=== PATIENT | female | born 1980 | race Caucasian/White ===

== ENCOUNTER 2016-11-22 12:28 | Emergency (ER) | payer OTHER ==
--- NOTE | 2016-11-22 12:43 | ERPHSYRPT ---
- History of Present Illness Time Seen by Provider: 11/22/16 12:35 Historian: patient Exam Limitations: no limitations Physician History: The patient is a 36-year-old morbidly obese female brought in by ambulance from [facility] where she experienced a sudden onset of left upper quadrant abdominal pain with radiation to her left chest, left shoulder, and left arm. She was also nauseated. She denies shortness of breath. She was given Zofran 4 mg IV in the ambulance. She was having dry heaves. She has a history of left-sided abdominal pain without diagnosis. Her past medical history is significant for high cholesterol, diabetes, hypothyroidism, GERD, morbid obesity, abdominal pain , and migraine headaches. Her surgical history significant only for D&C. Timing/Duration: today Activities at Onset: none Quality: sharpness Abdominal Pain Onset Location: LLQ Pain Radiation: shoulder (left ), other (left arm) Severity of Pain-Max: moderate Severity of Pain-Current: mild Modifying Factors: Improves With: nothing Associated Symptoms: nausea, vomiting (dry heaves) Previous symptoms: same symptoms as today Allergies/Adverse Reactions: hydrocodone bitartrate [From Vicodin] Allergy (Severe, Verified 11/22/16 12:33) Hives Sulfa (Sulfonamide Antibiotics) [Sulfa(Sulfonamide Antibiotics)] Allergy (Severe , Verified 11/22/16 12:33) Hives codeine [Codeine] Allergy (Intermediate, Verified 11/22/16 12:33) Hives ibuprofen Allergy (Verified 11/22/16 12:33) [id number] Antimigraine Agents Allergy (Verified 11/22/16 12:33) ANY KIND OF MIGRAINE MED Allergy (Intermediate, Uncoded 11/22/16 12:33) Hives Home Medications: Ezetimibe 10 mg [Zetia 10 MG] 10 mg PO HS 02/11/14 [History] Levothyroxine Sodium [Synthroid] 300 mcg PO DAILY 02/11/14 [History] Naproxen 1 - 2 tab PO Q4H PRN 02/11/14 [History] Omeprazole [Prilosec] 40 mg PO BID 02/11/14 [History] Topiramate 100 mg [Topamax 100 MG] 50 mg PO BID 02/11/14 [History] Tramadol HCl 50 mg PO Q4H PRN 02/11/14 [History] Atorvastatin Calcium [Lipitor] 40 mg PO DAILY 11/22/16 [History] Lisinopril [Zestril] 2.5 mg PO DAILY 11/22/16 [History] Paroxetine HCl [Paxil] 10 mg PO DAILY 11/22/16 [History] Hx Tetanus, Diphtheria Vaccination/Date Given: Yes (TETANUS OUT OF DATE) Hx Influenza Vaccination/Date Given: Yes Hx Pneumococcal Vaccination/Date Given: Yes - Review of Systems Constitutional: No Fever, No Chills Eyes: No Symptoms Ears, Nose, & Throat: No Symptoms Respiratory: No Cough, No Dyspnea Cardiac: No Chest Pain, No Edema, No Syncope Abdominal/Gastrointestinal: Abdominal Pain, Nausea, Vomiting Genitourinary Symptoms: No Dysuria Musculoskeletal: No Back Pain, No Neck Pain Skin: No Rash Neurological: No Dizziness, No Focal Weakness, No Sensory Changes Psychological: No Symptoms Endocrine: No Symptoms Hematologic/Lymphatic: No Symptoms Immunological/Allergic: No Symptoms All Other Systems: Reviewed and Negative - Past Medical History Pertinent Past Medical History: Yes Neurological History: Migraines, Other ENT History: No Pertinent History Cardiac History: Hypertension Respiratory History: No Pertinent History Endocrine Medical History: Hypothyroidism Musculoskeletal History: Fibromyalgia GI Medical History: GERD, Pancreatitis, Polyps History: Other Psycho-Social History: Anxiety Female Reproductive Disorders: Endometriosis, Other Other Medical History: TOURETTE'S - Past Surgical History Past Surgical History: Yes Neuro Surgical History: No Pertinent History Cardiac: No Pertinent History Respiratory: No Pertinent History Gastrointestinal: No Pertinent History Genitourinary: No Pertinent History Musculoskeletal: No Pertinent History Female Surgical History: Other Other Surgical History: D&C 05/22/2013 - Social History Smoking Status: Former smoker Exposure to second hand smoke: No Drug Use: none Patient Lives Alone: No Significant Family History: heart disease, cancer, diabetes - Female History Hx Now: No - Nursing Vital Signs Nursing Vital Signs: Initial Vital Signs Temperature 97.6 F 11/22/16 12:29 Pulse Rate 75 11/22/16 12:29 Respiratory Rate 18 11/22/16 12:29 Blood Pressure 112/64 11/22/16 12:29 O2 Sat by Pulse Oximetry 98 11/22/16 12:29 Pain Scale Pain Intensity 4 - Physical Exam General Appearance: mild distress Eye Exam: PERRL/EOMI, eyes nml inspection Ears, Nose, Throat Exam: normal ENT inspection, pharynx normal, moist mucous membranes Neck Exam: normal inspection, non-tender, supple, full range of motion Respiratory Exam: normal breath sounds, lungs clear, No respiratory distress Cardiovascular Exam: regular rate/rhythm, normal heart sounds Gastrointestinal/Abdomen Exam: tenderness (LUQ) Pelvic Exam: not done Rectal Exam: not done Back Exam: normal inspection, normal range of motion, No CVA tenderness, No vertebral tenderness Extremity Exam: normal inspection, normal range of motion, pelvis stable Neurologic Exam: alert, oriented x 3, cooperative, normal mood/affect, nml cerebellar function, sensation nml, No motor deficits Skin Exam: normal color, warm, dry SpO2 Interpretation: normal - Course EKG Interpreted by Me: RATE, NORMAL AXIS, NORMAL INTERVALS, NORMAL QRS, NORMAL ST-T - Radiology Exams Abdomen X-ray Interpretation: Teleradiologist Report, Negative (no air space disease), Other (mild small bowel dilatation and scattered air-fluid levels per Dr Negron) Ordered Tests: Active Orders 24 hr Category Date Time Status EKG-ER Only STAT Care 11/22/16 12:49 Active IV Insertion STAT Care 11/22/16 12:49 Active OBSTR/ACUTE ABDOMEN SERIES Stat Exams 11/22/16 13:35 Taken CBC W DIFF Stat Lab 11/22/16 12:55 Completed CMP Stat Lab 11/22/16 12:55 Completed CULTURE,URINE Stat Lab 11/22/16 12:49 Received HCG QUALITATIVE,SERUM Stat Lab 11/22/16 12:55 Completed LIPASE Stat Lab 11/22/16 12:55 Completed Lactic Acid Stat Lab 11/22/16 12:49 Completed TROPONIN Q3H Lab 11/22/16 13:00 Completed TROPONIN Q3H Lab 11/22/16 16:00 Ordered TROPONIN Q3H Lab 11/22/16 19:00 Ordered TROPONIN Q3H Lab 11/22/16 22:00 Ordered TROPONIN Q3H Lab 11/23/16 01:00 Ordered UA W/ MICROSCOPIC Stat Lab 11/22/16 12:49 Completed Urine Triage Profile Stat Lab 11/22/16 12:45 Completed Medication Summary Discontinued Medications Generic Name Dose Route Start Last Admin Trade Name Freq PRN Reason Stop Dose Admin Sodium Chloride 1,000 mls @ 999 mls/hr 11/22/16 12:49 11/22/16 13:10 Sodium Chloride 0.9% 1000 Ml IV 11/22/16 13:49 999 mls/hr .Q1H1M STA Administration Sodium Chloride Confirm 11/22/16 13:07 Sodium Chloride 0.9% 1000 Ml Administered 11/22/16 13:08 Dose 1,000 mls @ ud .ROUTE .STK-MED ONE Morphine Sulfate 4 mg 11/22/16 12:49 11/22/16 13:11 Morphine Sulfate 4 Mg Inj IV 11/22/16 12:50 4 mg STAT ONE Administration Morphine Sulfate Confirm 11/22/16 13:07 Morphine Sulfate 4 Mg Inj Administered 11/22/16 13:08 Dose 4 mg .ROUTE .STK-MED ONE Promethazine HCl 12.5 mg 11/22/16 12:49 11/22/16 13:11 Phenergan 25 Mg Inj IV 11/22/16 12:50 12.5 mg STAT ONE Administration Promethazine HCl Confirm 11/22/16 13:07 Phenergan 25 Mg Inj Administered 11/22/16 13:08 Dose 25 mg .ROUTE .STK-MED ONE Lab/Rad Data: Laboratory Result Diagrams 11/22/16 12:55 11/22/16 12:55 Laboratory Results 11/22/16 11/22/16 11/22/16 Range/Units 13:00 12:55 12:55 WBC (4.0-10.5) K/mm3 RBC (4.1-5.4) M/mm3 Hgb (12.0-16.0) gm/dl Hct (35-47) % MCV (78-100) fl MCH (26-32) pg MCHC (32-36) g/dl RDW (11.5-14.0) % Plt Count (150-450) K/mm3 MPV (6-9.5) fl Gran % (36.0-66.0) % Lymphocytes % (24.0-44.0) % Monocytes % (0.0-12.0) % Eosinophils % (0.00-5.0) % Basophils % (0.0-0.4) % Basophils # (0-0.4) Sodium 139 (136-145) mEq/L Potassium 3.9 (3.5-5.1) mEq/L Chloride 107 (98-107) mEq/L Carbon Dioxide 20.6 L (21-32) mEq/L Anion Gap 15.4 H (5-15) MEQ/L BUN 17 (9-20) mg/dL Creatinine 1.05 (0.55-1.30) mg/dl Estimated GFR > 60 ML/MIN Glucose 92 (70-110) MG/DL Lactic Acid (0.4-2.0) Calcium 9.0 (8.5-10.1) mg/dL Total Bilirubin 0.50 (0.2-1.0) mg/dL AST 27 (15-37) U/L ALT 31 (12-78) U/L Alkaline Phosphatase 92 (46-116) U/L Troponin I < 0.017 (0.000-0.056) ng/ml Serum Total Protein 8.0 (6.4-8.2) gm/dL Albumin 3.4 (3.4-5.0) g/dL Lipase 116 (73-393) U/L Serum , Qual NEGATIVE (Negative) Ur Collection Type Urine Color (YELLOW) Urine Appearance (CLEAR) Urine pH (5-6) Ur Specific [place] (1.005-1.025) Urine Protein (Negative) Urine Ketones (NEGATIVE) Urine Blood (0-5) Merlin/ul Urine Nitrite (NEGATIVE) Urine Bilirubin (NEGATIVE) Urine Urobilinogen (0-1) mg/dL Ur Leukocyte Esterase (NEGATIVE) Urine Microscopic RBC (0-2) /HPF Urine Microscopic WBC (0-5) /HPF Ur Epithelial Cells (FEW) /HPF Urine Bacteria (NEGATIVE) /HPF Urine Mucus (NEGATIVE) /HPF Urine Glucose (NEGATIVE) mg/dL Urine Opiates Level (NEGATIVE) Ur Methadone (NEGATIVE) Urine Barbiturates (NEGATIVE) Ur Phencyclidine (PCP) (NEGATIVE) Urine Amphetamine (NEGATIVE) U Benzodiazepine Level (NEGATIVE) Urine Cocaine (NEGATIVE) Urine Marijuana (THC) (NEGATIVE) Specimen Received 11/22/16 11/22/16 11/22/16 Range/Units 12:55 12:49 12:49 WBC 7.9 (4.0-10.5) K/mm3 RBC 4.46 (4.1-5.4) M/mm3 Hgb 12.3 (12.0-16.0) gm/dl Hct 38.1 (35-47) % MCV 85.4 (78-100) fl MCH 27.6 (26-32) pg MCHC 32.3 (32-36) g/dl RDW 13.9 (11.5-14.0) % Plt Count 271 (150-450) K/mm3 MPV 10.2 H (6-9.5) fl Gran % 76.1 H (36.0-66.0) % Lymphocytes % 15.0 L (24.0-44.0) % Monocytes % 8.0 (0.0-12.0) % Eosinophils % 0.5 (0.00-5.0) % Basophils % 0.4 (0.0-0.4) % Basophils # 0.03 (0-0.4) Sodium (136-145) mEq/L Potassium (3.5-5.1) mEq/L Chloride (98-107) mEq/L Carbon Dioxide (21-32) mEq/L Anion Gap (5-15) MEQ/L BUN (9-20) mg/dL Creatinine (0.55-1.30) mg/dl Estimated GFR ML/MIN Glucose (70-110) MG/DL Lactic Acid 1.1 (0.4-2.0) Calcium (8.5-10.1) mg/dL Total Bilirubin (0.2-1.0) mg/dL AST (15-37) U/L ALT (12-78) U/L Alkaline Phosphatase (46-116) U/L Troponin I (0.000-0.056) ng/ml Serum Total Protein (6.4-8.2) gm/dL Albumin (3.4-5.0) g/dL Lipase (73-393) U/L Serum , Qual (Negative) Ur Collection Type VOID Urine Color YELLOW (YELLOW) Urine Appearance CLOUDY (CLEAR) Urine pH 5.0 (5-6) Ur Specific [place] 1.025 (1.005-1.025) Urine Protein 100 (Negative) Urine Ketones SMALL (NEGATIVE) Urine Blood 250 (0-5) Merlin/ul Urine Nitrite NEGATIVE (NEGATIVE) Urine Bilirubin NEGATIVE (NEGATIVE) Urine Urobilinogen NORMAL (0-1) mg/dL Ur Leukocyte Esterase 1+ (NEGATIVE) Urine Microscopic RBC 5-10 (0-2) /HPF Urine Microscopic WBC 5-10 (0-5) /HPF Ur Epithelial Cells MANY (FEW) /HPF Urine Bacteria MANY (NEGATIVE) /HPF Urine Mucus MODERATE (NEGATIVE) /HPF Urine Glucose NEGATIVE (NEGATIVE) mg/dL Urine Opiates Level (NEGATIVE) Ur Methadone (NEGATIVE) Urine Barbiturates (NEGATIVE) Ur Phencyclidine (PCP) (NEGATIVE) Urine Amphetamine (NEGATIVE) U Benzodiazepine Level (NEGATIVE) Urine Cocaine (NEGATIVE) Urine Marijuana (THC) (NEGATIVE) Specimen Received 11/22/16 1245 11/22/16 Range/Units 12:45 WBC (4.0-10.5) K/mm3 RBC (4.1-5.4) M/mm3 Hgb (12.0-16.0) gm/dl Hct (35-47) % MCV (78-100) fl MCH (26-32) pg MCHC (32-36) g/dl RDW (11.5-14.0) % Plt Count (150-450) K/mm3 MPV (6-9.5) fl Gran % (36.0-66.0) % Lymphocytes % (24.0-44.0) % Monocytes % (0.0-12.0) % Eosinophils % (0.00-5.0) % Basophils % (0.0-0.4) % Basophils # (0-0.4) Sodium (136-145) mEq/L Potassium (3.5-5.1) mEq/L Chloride (98-107) mEq/L Carbon Dioxide (21-32) mEq/L Anion Gap (5-15) MEQ/L BUN (9-20) mg/dL Creatinine (0.55-1.30) mg/dl Estimated GFR ML/MIN Glucose (70-110) MG/DL Lactic Acid (0.4-2.0) Calcium (8.5-10.1) mg/dL Total Bilirubin (0.2-1.0) mg/dL AST (15-37) U/L ALT (12-78) U/L Alkaline Phosphatase (46-116) U/L Troponin I (0.000-0.056) ng/ml Serum Total Protein (6.4-8.2) gm/dL Albumin (3.4-5.0) g/dL Lipase (73-393) U/L Serum , Qual (Negative) Ur Collection Type Urine Color (YELLOW) Urine Appearance (CLEAR) Urine pH (5-6) Ur Specific [place] (1.005-1.025) Urine Protein (Negative) Urine Ketones (NEGATIVE) Urine Blood (0-5) Merlin/ul Urine Nitrite (NEGATIVE) Urine Bilirubin (NEGATIVE) Urine Urobilinogen (0-1) mg/dL Ur Leukocyte Esterase (NEGATIVE) Urine Microscopic RBC (0-2) /HPF Urine Microscopic WBC (0-5) /HPF Ur Epithelial Cells (FEW) /HPF Urine Bacteria (NEGATIVE) /HPF Urine Mucus (NEGATIVE) /HPF Urine Glucose (NEGATIVE) mg/dL Urine Opiates Level NEG. (NEGATIVE) Ur Methadone NEG. (NEGATIVE) Urine Barbiturates NEG. (NEGATIVE) Ur Phencyclidine (PCP) NEG. (NEGATIVE) Urine Amphetamine NEG. (NEGATIVE) U Benzodiazepine Level NEG. (NEGATIVE) Urine Cocaine NEG. (NEGATIVE) Urine Marijuana (THC) NEG. (NEGATIVE) Specimen Received - Progress Progress: improved Progress Note: 11/22/16 13:03 Review of past imaging studies: On 06/22/2013 the patient had a nuclear med hepatobiliary scan which was normal. A gallbladder ultrasound performed on 12/26 showed no cholelithiasis, no gallbladder wall enlargement, and no gallbladder wall thickening. on 08/12/2016 a renal ultrasound was negative. Counseled pt/family regarding: lab results, diagnosis, need for follow-up, rad results - Departure Time of Disposition: 14:57 Departure Disposition: Home Clinical Impression: Enteritis Condition: Stable Critical Care Time: No Referrals: FELIX VILLAGRAN [Primary Care Provider] - Additional Instructions: You have enteritis with nausea and abdominal pain. You were given fluids, morphine 4 mg, and Zofran 4 mg in the ER by IV. Take Tylenol as needed. Follow -up tomorrow if needed.
[2016-11-22] MEDS ORDERED: MORPHINE SULFATE 4 MG INJ IV ONE (12:49)
[2016-11-22] MEDS ORDERED: Phenergan 25 MG INJ IV ONE (12:49)
[2016-11-22] MEDS ORDERED: Sodium Chloride 0.9% 1000 ML 1,000 ML IV STA (12:49)
[2016-11-22] MEDS ORDERED: MORPHINE SULFATE 4 MG INJ ONE (13:07)
[2016-11-22] MEDS ORDERED: Sodium Chloride 0.9% 1000 ML 1,000 ML ONE (13:07)
[2016-11-22] MEDS ORDERED: Phenergan 25 MG INJ ONE (13:07)
[2016-11-22 13:08] LABS: BASOPHIL % 0.4 % (0.0-0.4); Eosinophil % 0.5 % (0.00-5.0); Granulocytes % 76.1 % (36.0-66.0); Mean Cell Volume 85.4 fl (78-100); Mean Corpuscular Hemoglobin 27.6 pg (26-32); Mean Platelet Volume 10.2 fl (6-9.5); Platelet Count 271 K/mm3 (150-450); Red Blood Count 4.46 M/mm3 (4.1-5.4); Red Cell Distribution Width 13.9 % (11.5-14.0); White Blood Count 7.9 K/mm3 (4.0-10.5)
[2016-11-22 13:12] LABS: Bacteria MANY /HPF (NEGATIVE); Bilirubin NEGATIVE (NEGATIVE); Blood 250 Ery/ul (0-5); COMPLETE URINE MICROSCOPIC? YES; Collection Type VOID; Epithelial Cells MANY /HPF (FEW); Glucose NEGATIVE (NEGATIVE); Leukocyte Esterase 1+ (NEGATIVE); Mucus MODERATE /HPF (NEGATIVE)
[2016-11-22 13:13] LABS: ADD URINE CULTURE? YES (NO)
[2016-11-22 13:26] LABS: ALBUMIN 3.4 g/dL (3.4-5.0); ALKALINE PHOSPHATASE 92 U/L (46-116); ANION GAP 15.4 MEQ/L (5-15); BLOOD UREA NITROGEN 17 mg/dL (9-20); CHLORIDE 107 mEq/L (98-107); Carbon Dioxide 20.6 mEq/L (21-32); Glucose 92 MG/DL (70-110); LIPASE 116 U/L (73-393); Potassium 3.9 mEq/L (3.5-5.1); SGOT/AST 27 U/L (15-37); SGPT/ALT 31 U/L (12-78); SODIUM 139 mEq/L (136-145)
[2016-11-22 14:48] VITALS: BP 93/56; PULSE 62; O2SAT 94
--- NOTE | 2016-11-22 21:22 | XRAY ---
Indication: Left upper quadrant abdominal pain and nausea for 6 days. Comparison: Chest exam February 15, 2014. 2 views of the abdomen demonstrates nonspecific nonobstructed bowel gas pattern. Solid organs unremarkable. Osseous structures intact with mild levoscoliosis. Single frontal chest again demonstrates normal heart, lungs, and bony thorax with incidental calcified granulomas. Impression: Nonacute nonobstructed abdomen. Stable nonacute 1 view chest with chronic features. Comment: Preliminary interpretation was made by [facility]. No discrepancy.
== END 2016-11-22 15:23 | disposition home or self-care (01) ==
LOC: ED 12:28
DX: K52.9 Noninfective gastroenteritis and colitis, unspecified (principal); N39.0 Urinary tract infection, site not specified; R10.12 Left upper quadrant pain; R10.32 Left lower quadrant pain; E78.00 Pure hypercholesterolemia, unspecified; E11.9 Type 2 diabetes mellitus without complications; E03.9 Hypothyroidism, unspecified; K21.9 Gastro-esophageal reflux disease without esophagitis; E66.01 Morbid (severe) obesity due to excess calories; R11.2 Nausea with vomiting, unspecified; Z79.899 Other long term (current) drug therapy
CPT/HCPCS: 36000; 36415; 74022; 80053; 80307; 81000; 83605; 83690; 84484; 84703; 85025; 87086; 93005; 96360; 96374; 96375; 99284; J2270; J2550

== ENCOUNTER 2017-04-23 22:59 | Emergency (ER) | payer OTHER ==
--- NOTE | 2017-04-23 23:20 | ERPHSYRPT ---
- History of Present Illness Time Seen by Provider: 04/23/17 23:15 Historian: patient Exam Limitations: clinical condition Patient Subjective Stated Complaint: Abdominal Pain Triage Nursing Assessment: Pt states intermittent LUQ abdominal pain with radiation into the RUQ. Pt states she has been evaluated for gall bladder issues but no further interventions have been performed. Pt states there is nothing that makes pain better or worse. Pt denies other complaints at this time. Skin PWD, no distress noted, A&O x4. Physician History: PATIENT WITH A HISTORY OF HYPERTENSION, HYPOTHYROIDISM, AND PANCREATITIS COMPLAINS OF ACUTE ONSET OF UPPER ABDOMINAL PAIN SINCE 3AM TODAY PERSISTENT, DENIES NAUSEA, EMESIS, OR FEVER. Timing/Duration: today Activities at Onset: none Quality: sharpness, stabbing Abdominal Pain Onset Location: LUQ, epigastric Severity of Pain-Max: moderate Severity of Pain-Current: moderate Modifying Factors: Improves With: nothing Associated Symptoms: denies symptoms Previous symptoms: same symptoms as today (HISTORY OF PANCREATITIS) Allergies/Adverse Reactions: hydrocodone bitartrate [From Vicodin] Allergy (Severe, Verified 11/22/16 12:33) Hives Sulfa (Sulfonamide Antibiotics) [Sulfa(Sulfonamide Antibiotics)] Allergy (Severe , Verified 11/22/16 12:33) Hives codeine [Codeine] Allergy (Intermediate, Verified 11/22/16 12:33) Hives ibuprofen Allergy (Verified 11/22/16 12:33) [id number] Antimigraine Agents Allergy (Verified 11/22/16 12:33) ANY KIND OF MIGRAINE MED Allergy (Intermediate, Uncoded 11/22/16 12:33) Hives Home Medications: Ezetimibe 10 mg [Zetia 10 MG] 10 mg PO HS 02/11/14 [History] Levothyroxine Sodium [Synthroid] 300 mcg PO DAILY 02/11/14 [History] Omeprazole [Prilosec] 40 mg PO BID 02/11/14 [History] Topiramate 100 mg [Topamax 100 MG] 50 mg PO BID 02/11/14 [History] Atorvastatin Calcium [Lipitor] 40 mg PO DAILY 11/22/16 [History] Lisinopril [Zestril] 2.5 mg PO DAILY 11/22/16 [History] Paroxetine HCl [Paxil] 10 mg PO DAILY 11/22/16 [History] Hx Tetanus, Diphtheria Vaccination/Date Given: No Hx Influenza Vaccination/Date Given: Yes Hx Pneumococcal Vaccination/Date Given: No Immunizations Up to Date: Yes - Review of Systems Constitutional: No Fever, No Chills Eyes: No Symptoms Ears, Nose, & Throat: No Symptoms Respiratory: No Symptoms, No Cough, No Dyspnea Cardiac: No Symptoms, No Chest Pain, No Edema, No Syncope Abdominal/Gastrointestinal: Abdominal Pain, No Nausea, No Vomiting, No Diarrhea Genitourinary Symptoms: No Symptoms, No Dysuria Musculoskeletal: No Symptoms, No Back Pain, No Neck Pain Skin: No Rash Neurological: No Dizziness, No Focal Weakness, No Sensory Changes Psychological: No Symptoms Endocrine: No Symptoms All Other Systems: Reviewed and Negative - Past Medical History Pertinent Past Medical History: Yes Neurological History: Migraines, Other ENT History: No Pertinent History Cardiac History: Hypertension Respiratory History: No Pertinent History Endocrine Medical History: Hypothyroidism Musculoskeletal History: Fibromyalgia GI Medical History: GERD, Pancreatitis, Polyps History: Other Psycho-Social History: Anxiety Female Reproductive Disorders: Endometriosis, Other Other Medical History: TOURETTE'S - Past Surgical History Past Surgical History: Yes Neuro Surgical History: No Pertinent History Cardiac: No Pertinent History Respiratory: No Pertinent History Gastrointestinal: No Pertinent History Genitourinary: No Pertinent History Musculoskeletal: No Pertinent History Female Surgical History: Other Other Surgical History: D&C 05/22/2013 - Social History Smoking Status: Former smoker Exposure to second hand smoke: No Drug Use: none Patient Lives Alone: No Significant Family History: heart disease, cancer, diabetes - Female History Hx Last Menstrual Period: 04/08/2017 Hx Now: No - Nursing Vital Signs Nursing Vital Signs: Initial Vital Signs Temperature 97.4 F 04/23/17 23:10 Pulse Rate 81 04/23/17 23:10 Respiratory Rate 18 04/23/17 23:10 Blood Pressure 132/79 04/23/17 23:10 O2 Sat by Pulse Oximetry 100 04/23/17 23:10 Pain Scale Pain Intensity 3 - Physical Exam General Appearance: no apparent distress, alert Eye Exam: PERRL/EOMI, eyes nml inspection Ears, Nose, Throat Exam: normal ENT inspection, pharynx normal, moist mucous membranes Neck Exam: normal inspection, non-tender, supple, full range of motion Respiratory Exam: normal breath sounds, lungs clear, No respiratory distress Cardiovascular Exam: regular rate/rhythm, normal heart sounds Gastrointestinal/Abdomen Exam: soft, normal bowel sounds, tenderness ( TENDERNESS EPIGASTRIC, RUQ AND LUQ), No mass Back Exam: normal inspection, normal range of motion, No CVA tenderness, No vertebral tenderness Extremity Exam: normal inspection, normal range of motion, pelvis stable Neurologic Exam: alert, oriented x 3, cooperative, normal mood/affect, nml cerebellar function, sensation nml, No motor deficits Skin Exam: normal color, warm, dry SpO2: 100 Oxygen Delivery: Room Air - CT Exams Abdomen/Pelvis CT Interpretation: Tele-radiologist Report (PANCREAS AND GALLBLADDER AND BILE DUCTS UNREMARKABLE, NO CALCIFIED STONES, NO DUCTAL DILATION, THERE I A NONOBSTRUCTING STONE MIDPOLE MEASURING 0.3 AND 0.4C), Other (MARKED STOOL THROUGH COLON) Ordered Tests: Active Orders 24 hr Category Date Time Status Clean Catch Urine Specimen STAT Care 04/23/17 23:36 Active IV Insertion STAT Care 04/23/17 23:36 Active ABDOMEN AND PELVIS W/0 CONTRAS [CT] Stat Exams 04/23/17 23:36 Taken AMYLASE Stat Lab 04/23/17 23:15 Completed CBC W DIFF Stat Lab 04/23/17 23:15 Completed CMP Stat Lab 04/23/17 23:15 Completed CULTURE,URINE Stat Lab 04/23/17 23:15 Received LIPASE Stat Lab 04/23/17 23:15 Completed UA W/ MICROSCOPIC Stat Lab 04/23/17 23:15 Completed Medication Summary Generic Name Dose Route Start Last Admin Trade Name Freq PRN Reason Stop Dose Admin Sodium Chloride 1,000 mls @ 500 mls/hr 04/23/17 23:36 04/23/17 23:44 Sodium Chloride 0.9% 1000 Ml IV 04/24/17 01:35 500 mls/hr .Q2H STA Administration Discontinued Medications Generic Name Dose Route Start Last Admin Trade Name Freq PRN Reason Stop Dose Admin Hydromorphone HCl 1 mg 04/23/17 23:36 04/23/17 23:51 Hydromorphone 1 Mg/Ml Ampule IV 04/23/17 23:37 1 mg STAT ONE Administration Hydromorphone HCl Confirm 04/23/17 23:42 Hydromorphone 1 Mg/Ml Ampule Administered 04/23/17 23:43 Dose 1 mg .ROUTE .STK-MED ONE Sodium Chloride Confirm 04/23/17 23:42 Sodium Chloride 0.9% 1000 Ml Administered 04/23/17 23:43 Dose 1,000 mls @ ud .ROUTE .STK-MED ONE Ceftriaxone Sodium/Dextrose 1 g in 50 mls @ 100 mls/hr 04/24/17 00:00 00:52 Rocephin 1 Gm-D5w 50 Ml Bag IV 04/24/17 00:29 100 mls/hr STAT STA Administration Ceftriaxone Sodium/Dextrose Confirm 04/24/17 00:29 Rocephin 1 Gm-D5w 50 Ml Bag Administered 04/24/17 00:30 Dose 1 g in 50 mls @ ud IV .STK-MED ONE Ondansetron HCl 4 mg 04/23/17 23:36 04/23/17 23:47 Zofran 4 Mg/2 Ml Vial IV 04/23/17 23:37 4 mg STAT ONE Administration Ondansetron HCl Confirm 04/23/17 23:42 Zofran 4 Mg/2 Ml Vial Administered 04/23/17 23:43 Dose 4 mg .ROUTE .STK-MED ONE Pantoprazole Sodium 40 mg 04/23/17 23:36 04/23/17 23:48 Protonix 40 Mg Iv IV 04/23/17 23:37 40 mg STAT ONE Administration Pantoprazole Sodium Confirm 04/23/17 23:42 Protonix 40 Mg Iv Administered 04/23/17 23:43 Dose 40 mg IV .STK-MED ONE Lab/Rad Data: Laboratory Result Diagrams 04/23/17 23:15 04/23/17 23:15 Laboratory Results 04/23/17 04/23/17 04/23/17 Range/Units 23:15 23:15 23:15 WBC 4.6 (4.0-10.5) K/mm3 RBC 4.30 (4.1-5.4) M/mm3 Hgb 11.9 L (12.0-16.0) gm/dl Hct 38.1 (35-47) % MCV 88.6 (78-100) fl MCH 27.6 (26-32) pg MCHC 31.2 L (32-36) g/dl RDW 15.1 H (11.5-14.0) % Plt Count 213 (150-450) K/mm3 MPV 10.5 H (6-9.5) fl Gran % 68.0 H (36.0-66.0) % Lymphocytes % 20.0 L (24.0-44.0) % Monocytes % 9.9 (0.0-12.0) % Eosinophils % 1.5 (0.00-5.0) % Basophils % 0.6 (0.0-0.4) % Basophils # 0.03 (0-0.4) Sodium 142 (136-145) mEq/L Potassium 3.3 L (3.5-5.1) mEq/L Chloride 106 (98-107) mEq/L Carbon Dioxide 30.2 (21-32) mEq/L Anion Gap 9.1 (5-15) MEQ/L BUN 20 (9-20) mg/dL Creatinine 0.97 (0.55-1.30) mg/dl Estimated GFR > 60 ML/MIN Glucose 72 (70-110) MG/DL Calcium 8.8 (8.5-10.1) mg/dL Total Bilirubin 0.40 (0.2-1.0) mg/dL AST 18 (15-37) U/L ALT 17 (12-78) U/L Alkaline Phosphatase 89 (46-116) U/L Serum Total Protein 7.8 (6.4-8.2) gm/dL Albumin 3.9 (3.4-5.0) g/dL Amylase 93 (25-115) U/L Lipase 178 (73-393) U/L Ur Collection Type CCMS Urine Color YELLOW (YELLOW) Urine Appearance SLIGHTLY CLOUDY (CLEAR) Urine pH 6.0 (5-6) Ur Specific [place] 1.025 (1.005-1.025) Urine Protein TRACE (Negative) Urine Ketones NEGATIVE (NEGATIVE) Urine Blood NEGATIVE (0-5) Merlin/ul Urine Nitrite NEGATIVE (NEGATIVE) Urine Bilirubin NEGATIVE (NEGATIVE) Urine Urobilinogen 1 (0-1) mg/dL Ur Leukocyte Esterase 1+ (NEGATIVE) Urine Microscopic RBC 0-2 (0-2) /HPF Urine Microscopic WBC 10-15 (0-5) /HPF Ur Epithelial Cells MODERATE (FEW) /HPF Urine Bacteria FEW (NEGATIVE) /HPF Urine Mucus SLIGHT (NEGATIVE) /HPF Urine Culture Reflexed YES (NO) Urine Glucose NEGATIVE (NEGATIVE) mg/dL Specimen Received 04-23-17 2345 - Progress Progress: improved Progress Note: 04/23/17 23:43 ADMINISTERED IV NORMAL SALINE 500ML/HR, ZOFRAN 4MG, PROTONIX 40MG AND DILAUDID 1MG IV 04/24/17 00:19 Counseled pt/family regarding: lab results, diagnosis, need for follow-up, rad results - Departure Time of Disposition: :20 Departure Disposition: Home Clinical Impression: ABDOMINAL PAIN., NONOBSTRUCTING RIGHT KIDNEY STONE, Urinary tract infection Condition: Stable Critical Care Time: No Referrals: FELIX VILLAGRAN [Primary Care Provider] - Additional Instructions: FOLLOWUP WITH YOUR PRIMARY CARE PROVIDER FOR REFERRAL FOR ENDOSCOPY. TAKE BOTTLE OF MAGNESIUM CITRATE AT HOME AFTER DISCHARGE FOR CONSTIPATION. MAY TAKE 2 TABLE SPOONS OF MYALANTA OR MAALOX AFTER MEALS AND AT BEDTIME. TYLENOL EVERY 4 HOURS FOR PAIN. Prescriptions: Ciprofloxacin [Cipro 500 MG] 500 mg PO BID #20 tablet Ciprofloxacin [Cipro 500 MG] 500 mg PO BID #20 tablet
[2017-04-23] MEDS ORDERED: Zofran 4 MG/2 ML VIAL IV ONE (23:36)
[2017-04-23] MEDS ORDERED: Hydromorphone 1 mg/ml Ampule IV ONE (23:36)
[2017-04-23] MEDS ORDERED: Sodium Chloride 0.9% 1000 ML 1,000 ML IV STA (23:36)
[2017-04-23] MEDS ORDERED: PROTONIX 40 MG IV IV ONE ×2 (23:36→23:42)
[2017-04-23] MEDS ORDERED: Sodium Chloride 0.9% 1000 ML 1,000 ML ONE (23:42)
[2017-04-23] MEDS ORDERED: Zofran 4 MG/2 ML VIAL ONE (23:42)
[2017-04-23] MEDS ORDERED: Hydromorphone 1 mg/ml Ampule ONE (23:42)
[2017-04-23 23:44] LABS: BASOPHIL % 0.6 % (0.0-0.4); Basophil (Absolute #) 0.03 (0-0.4); Eosinophil % 1.5 % (0.00-5.0); Eosinophil (Absolute #) 0.07 (0-0.5); Granulocyte Absolute (ANC) 3.15 (1.4-6.9); Hematocrit 38.1 % (35-47); Hemoglobin 11.9 gm/dl (12.0-16.0); Lymphocyte (Absolute #) 0.93 (1.0-4.6); Mean Cell Volume 88.6 fl (78-100); Mean Corpuscular Hgb Concent. 31.2 g/dl (32-36); Mean Platelet Volume 10.5 fl (6-9.5); Monocyte (Absolute #) 0.46 (0.0-1.3); Monocytes % 9.9 % (0.0-12.0); Platelet Count 213 K/mm3 (150-450); Red Cell Distribution Width 15.1 % (11.5-14.0); White Blood Count 4.6 K/mm3 (4.0-10.5)
[2017-04-23 23:45] LABS: Mean Corpuscular Hemoglobin 27.6 pg (26-32)
[2017-04-23 23:53] LABS: ALBUMIN 3.9 g/dL (3.4-5.0); ALKALINE PHOSPHATASE 89 U/L (46-116); AMYLASE 93 U/L (25-115); ANION GAP 9.1 MEQ/L (5-15); Appearance SLIGHTLY CLOUDY (CLEAR); BLOOD UREA NITROGEN 20 mg/dL (9-20); Bacteria FEW /HPF (NEGATIVE); Bilirubin NEGATIVE (NEGATIVE); Blood NEGATIVE Ery/ul (0-5); CHLORIDE 106 mEq/L (98-107); Calcium 8.8 mg/dL (8.5-10.1); Carbon Dioxide 30.2 mEq/L (21-32); Creatinine 1 0.97 mg/dl (0.55-1.30); EST GLOMERULAR FILTRATION RATE > 60 ML/MIN; Epithelial Cells MODERATE /HPF (FEW); Glucose 72 MG/DL (70-110); Glucose NEGATIVE (NEGATIVE); Ketones NEGATIVE (NEGATIVE); LIPASE 178 U/L (73-393); Leukocyte Esterase 1+ (NEGATIVE); Mucus SLIGHT /HPF (NEGATIVE); Nitrite NEGATIVE (NEGATIVE); Potassium 3.3 mEq/L (3.5-5.1); Protein,Urine Dip TRACE (Negative); SGOT/AST 18 U/L (15-37); SGPT/ALT 17 U/L (12-78); SODIUM 142 mEq/L (136-145); Specific Gravity 1.025 (1.005-1.025); Total Protein 7.8 gm/dL (6.4-8.2); Urobilinogen 1 mg/dL (0-1)
[2017-04-24] MEDS ORDERED: ROCEPHIN 1 Gm-D5w 50 ml Bag** 1 G/50 ML IVPB IV STA
[2017-04-24] MEDS ORDERED: ROCEPHIN 1 Gm-D5w 50 ml Bag** 1 G/50 ML IVPB IV ONE (00:29)
[2017-04-24 01:05] VITALS: O2SAT 100
[2017-04-24] MEDS ORDERED: CITROMA 296 ML PO ONE (01:21)
[2017-04-24] MEDS ORDERED: CITROMA 296 ML ONE (01:26)
[2017-04-24] MEDS ORDERED: ULTRAM 50 MG PO ONE (01:29)
[2017-04-24] MEDS ORDERED: ULTRAM 50 MG ONE (01:32)
[2017-04-24 01:34] VITALS: BP 121/74; PULSE 74
--- NOTE | 2017-04-24 06:34 | XRAY ---
Indication: Upper abdominal pain and nausea. Multiple contiguous axial images obtained through the abdomen and pelvis without contrast as ordered. Comparison: June 07, 2013. Lung bases demonstrates minimal bibasilar dependent atelectasis and right base calcified granulomas. Heart is not enlarged. Noncontrasted stomach and bowel loops appear nonobstructed. Normal appendix. Mild diffuse scattered colonic fecal debris throughout. No free fluid/air. New nonobstructing right renal micro-calculus. Stable splenic calcified granulomas. Remaining liver, gallbladder, pancreas, spleen, adrenal glands, kidneys, ureters, bladder, uterus, and aorta appear unremarkable for noncontrast exam. Osseous structures intact. Impression: 1. New nonobstructing right renal micro-calculus. 2. Fecal stasis without obstruction. 3. No acute intra-abdominal/pelvic abnormalities on this noncontrast exam. Comment: Preliminary interpretation was made by C. No critical discrepancy. CTDI 28.13
== END 2017-04-24 01:47 | disposition home or self-care (01) ==
LOC: ED 22:59
DX: R10.13 Epigastric pain (principal); R10.11 Right upper quadrant pain; R10.12 Left upper quadrant pain; R10.9 Unspecified abdominal pain; N39.0 Urinary tract infection, site not specified; I10 Essential (primary) hypertension; E03.9 Hypothyroidism, unspecified; K21.9 Gastro-esophageal reflux disease without esophagitis; K86.1 Other chronic pancreatitis; M79.7 Fibromyalgia; F41.9 Anxiety disorder, unspecified; N80.9 Endometriosis, unspecified; Z87.891 Personal history of nicotine dependence; Z79.899 Other long term (current) drug therapy
CPT/HCPCS: 36000; 36415; 74176; 80053; 81000; 82150; 83690; 85025; 87086; 96360; 96361; 96374; 96375; 99284; J0696; J1170; J2405; A9270-GY

== ENCOUNTER 2017-09-18 09:23 | Emergency (ER) | payer OTHER ==
[2017-09-18 09:42] VITALS: O2SAT 98
[2017-09-18] MEDS ORDERED: Zofran 4 MG/2 ML VIAL IV ONE (09:45)
[2017-09-18] MEDS ORDERED: TORAdol 30 mg Injection IV ONE (09:45)
[2017-09-18] MEDS ORDERED: Zofran 4 MG/2 ML VIAL ONE (09:52)
--- NOTE | 2017-09-18 09:52 | ERPHSYRPT ---
- History of Present Illness Time Seen by Provider: 09/18/17 09:40 Historian: patient Exam Limitations: no limitations Patient Subjective Stated Complaint: Pt states "I have cysts on my ovaries and on I felt a pop in my lower left side and the pain is bad." Triage Nursing Assessment: Pt alert and oriented X 3, skin pwd Pt ambulates with an upright steady gait, able to speak in clear full sentences. PT is guarding her lower left abdomen. Physician History: 37 y/o female with history of ruptured ovarian cysts comes to the ER with complaints of LLQ abdominal pain since . Pt says the pain is similar to her ovarian cyst pain. Pt describes the pain as sharp, constant, 8/10 and pt has not taken any pain meds. Pt also admits to nausea, but denies any vomiting, fever, chills, diarrhea or urinary symptoms. Pt also admits to being constipated. Timing/Duration: day(s) Activities at Onset: none Quality: sharpness Abdominal Pain Onset Location: LLQ Pain Radiation: no radiation Severity of Pain-Max: severe Severity of Pain-Current: severe Modifying Factors: Improves With: nothing Associated Symptoms: nausea Previous symptoms: same symptoms as today Allergies/Adverse Reactions: blueberry Allergy (Severe, Verified 09/18/17 09:43) Swelling hydrocodone bitartrate [From Vicodin] Allergy (Severe, Verified 11/22/16 12:33) Hives Sulfa (Sulfonamide Antibiotics) [Sulfa(Sulfonamide Antibiotics)] Allergy (Severe , Verified 11/22/16 12:33) Hives codeine [Codeine] Allergy (Intermediate, Verified 11/22/16 12:33) Hives ibuprofen Allergy (Verified 11/22/16 12:33) [id number] Antimigraine Agents Allergy (Verified 11/22/16 12:33) ANY KIND OF MIGRAINE MED Allergy (Intermediate, Uncoded 11/22/16 12:33) Hives Home Medications: Ezetimibe 10 mg [Zetia 10 MG] 10 mg PO HS 02/11/14 [History] Levothyroxine Sodium [Synthroid] 300 mcg PO DAILY 02/11/14 [History] Omeprazole [Prilosec] 40 mg PO BID 02/11/14 [History] Topiramate 100 mg [Topamax 100 MG] 50 mg PO BID 02/11/14 [History] Atorvastatin Calcium [Lipitor] 40 mg PO DAILY 11/22/16 [History] Lisinopril [Zestril] 2.5 mg PO DAILY 11/22/16 [History] Paroxetine HCl [Paxil] 10 mg PO DAILY 11/22/16 [History] Tramadol HCl 50 mg PO DAILY 09/18/17 [History] Hx Tetanus, Diphtheria Vaccination/Date Given: Yes Hx Influenza Vaccination/Date Given: Yes Hx Pneumococcal Vaccination/Date Given: No Immunizations Up to Date: Yes - Review of Systems Constitutional: No Fever, No Chills Eyes: No Symptoms Ears, Nose, & Throat: No Symptoms Respiratory: No Cough, No Dyspnea Cardiac: No Chest Pain, No Edema, No Syncope Abdominal/Gastrointestinal: Abdominal Pain, Nausea, No Vomiting, No Diarrhea Genitourinary Symptoms: No Dysuria Musculoskeletal: No Back Pain, No Neck Pain Skin: No Rash Neurological: No Dizziness, No Focal Weakness, No Sensory Changes Psychological: No Symptoms Endocrine: No Symptoms All Other Systems: Reviewed and Negative - Past Medical History Pertinent Past Medical History: Yes Neurological History: Migraines, Other ENT History: No Pertinent History Cardiac History: Hypertension Respiratory History: No Pertinent History Endocrine Medical History: Hypothyroidism Musculoskeletal History: Fibromyalgia GI Medical History: GERD, Pancreatitis, Polyps History: Other Psycho-Social History: Anxiety Female Reproductive Disorders: Endometriosis, Other Other Medical History: TOURETTE'S - Past Surgical History Past Surgical History: Yes Neuro Surgical History: No Pertinent History Cardiac: No Pertinent History Respiratory: No Pertinent History Gastrointestinal: No Pertinent History Genitourinary: No Pertinent History Musculoskeletal: No Pertinent History Female Surgical History: Other Other Surgical History: D&C 05/22/2013 - Social History Smoking Status: Former smoker Exposure to second hand smoke: No Drug Use: none Patient Lives Alone: No Significant Family History: heart disease, cancer, diabetes - Female History Hx Last Menstrual Period: 09/18/2017 Hx Now: No - Nursing Vital Signs Nursing Vital Signs: Initial Vital Signs Temperature 98.5 F 09/18/17 09:28 Pulse Rate 62 09/18/17 09:28 Respiratory Rate 16 09/18/17 09:28 Blood Pressure 117/73 09/18/17 09:28 O2 Sat by Pulse Oximetry 98 09/18/17 09:28 Pain Scale Pain Intensity 6 - Physical Exam General Appearance: mild distress, alert Eye Exam: PERRL/EOMI, eyes nml inspection Ears, Nose, Throat Exam: normal ENT inspection, pharynx normal, moist mucous membranes Neck Exam: normal inspection, non-tender, supple, full range of motion Respiratory Exam: normal breath sounds, lungs clear, No respiratory distress Cardiovascular Exam: regular rate/rhythm, normal heart sounds Gastrointestinal/Abdomen Exam: soft, normal bowel sounds, tenderness, No distention, No mass, No guarding, No rebound Back Exam: normal inspection, normal range of motion, No CVA tenderness, No vertebral tenderness Extremity Exam: normal inspection, normal range of motion, pelvis stable Neurologic Exam: alert, oriented x 3, cooperative, normal mood/affect, nml cerebellar function, sensation nml, No motor deficits Skin Exam: normal color, warm, dry SpO2: 98 Oxygen Delivery: Room Air - Course Nursing assessment & vital signs reviewed: Yes Ordered Tests: Active Orders 24 hr Category Date Time Status IV Insertion STAT Care 09/18/17 09:45 Active NPO (ED) STAT Care 09/18/17 09:45 Active ABDOMEN AND PELVIS W CONTRAST [CT] Stat Exams 09/18/17 11:05 Taken KUB Stat Exams 09/18/17 09:47 Taken PELVIS TRANS VAGINAL [US] Stat Exams 09/18/17 09:48 Taken AMYLASE Stat Lab 09/18/17 09:50 Completed CBC W DIFF Stat Lab 09/18/17 09:50 Completed CMP Stat Lab 09/18/17 09:50 Completed HCG QUALITATIVE,SERUM Stat Lab 09/18/17 09:50 Completed LIPASE Stat Lab 09/18/17 09:50 Completed UA W/ MICROSCOPIC Stat Lab 09/18/17 09:50 Completed Medication Summary Discontinued Medications Generic Name Dose Route Start Last Admin Trade Name Freq PRN Reason Stop Dose Admin Diphenhydramine HCl 25 mg 09/18/17 11:11 09/18/17 11:33 Benadryl 50 Mg/Ml IV 09/18/17 11:12 25 mg STAT ONE Administration Diphenhydramine HCl Confirm 09/18/17 11:32 Benadryl 50 Mg/Ml Administered 09/18/17 11:33 Dose 50 mg .ROUTE .STK-MED ONE Hydrocortisone Sodium Succinate 100 mg 09/18/17 11:11 09/18/17 11:24 Solu-Cortef 100mg IV 09/18/17 11:12 100 mg STAT ONE Administration Hydrocortisone Sodium Succinate Confirm 09/18/17 11:22 Solu-Cortef 100mg Administered 09/18/17 11:23 Dose 100 mg .ROUTE .STK-MED ONE Sodium Chloride 1,000 mls @ 999 mls/hr 09/18/17 11:11 09/18/17 11:24 Sodium Chloride 0.9% 1000 Ml IV 09/18/17 12:11 999 mls/hr .Q1H1M STA Administration Sodium Chloride Confirm 09/18/17 11:22 Sodium Chloride 0.9% 1000 Ml Administered 09/18/17 11:23 Dose 1,000 mls @ ud .ROUTE .STK-MED ONE Ketorolac Tromethamine 30 mg 09/18/17 09:45 09/18/17 10:05 Toradol 30 Mg Injection IV 09/18/17 09:46 30 mg STAT ONE Administration Ketorolac Tromethamine Confirm 09/18/17 09:53 Toradol 30 Mg Injection Administered 09/18/17 09:54 Dose 30 mg .ROUTE .STK-MED ONE Morphine Sulfate 4 mg 09/18/17 11:05 09/18/17 11:12 Morphine Sulfate 4 Mg Inj IV 09/18/17 11:06 4 mg STAT ONE Administration Morphine Sulfate Confirm 09/18/17 11:11 Morphine Sulfate 4 Mg Inj Administered 09/18/17 11:12 Dose 4 mg .ROUTE .STK-MED ONE Ondansetron HCl 4 mg 09/18/17 09:45 09/18/17 10:05 Zofran 4 Mg/2 Ml Vial IV 09/18/17 09:46 4 mg STAT ONE Administration Ondansetron HCl Confirm 09/18/17 09:52 Zofran 4 Mg/2 Ml Vial Administered 09/18/17 09:53 Dose 4 mg .ROUTE .STK-MED ONE Lab/Rad Data: Laboratory Result Diagrams 09/18/17 09:50 09/18/17 09:50 Laboratory Results 09/18/17 09/18/17 09/18/17 Range/Units 09:50 09:50 09:50 WBC (4.0-10.5) K/mm3 RBC (4.1-5.4) M/mm3 Hgb (12.0-16.0) gm/dl Hct (35-47) % MCV (78-100) fl MCH (26-32) pg MCHC (32-36) g/dl RDW (11.5-14.0) % Plt Count (150-450) K/mm3 MPV (6-9.5) fl Gran % (36.0-66.0) % Eos # (Auto) (0-0.5) Absolute Lymphs (auto) (1.0-4.6) Absolute Monos (auto) (0.0-1.3) Lymphocytes % (24.0-44.0) % Monocytes % (0.0-12.0) % Eosinophils % (0.00-5.0) % Basophils % (0.0-0.4) % Absolute Granulocytes (1.4-6.9) Basophils # (0-0.4) Sodium 143 (137-145) mmol/L Potassium 4.2 (3.5-5.1) mmol/L Chloride 106 (98-107) mmol/L Carbon Dioxide 25 (22-30) mmol/L Anion Gap 15.0 (5-15) MEQ/L BUN 21 H (7-17) mg/dL Creatinine 0.97 (0.52-1.04) mg/dL Estimated GFR > 60.0 ML/MIN Glucose 84 (74-106) mg/dL Calcium 9.3 (8.4-10.2) mg/dL Total Bilirubin 0.40 (0.2-1.3) mg/dL AST 22 (14-36) U/L ALT 17 (0-35) U/L Alkaline Phosphatase 73 (38-126) U/L Serum Total Protein 7.4 (6.3-8.2) g/dL Albumin 4.1 (3.5-5.0) g/dL Amylase 106 (30-110) U/L Lipase 65 (23-300) U/L Serum , Qual NEGATIVE (Negative) Ur Collection Type VOID Urine Color YELLOW (YELLOW) Urine Appearance CLEAR (CLEAR) Urine pH 6.0 (5-6) Ur Specific [place] 1.015 (1.005-1.025) Urine Protein NEGATIVE (Negative) Urine Ketones NEGATIVE (NEGATIVE) Urine Blood 50 (0-5) Merlin/ul Urine Nitrite NEGATIVE (NEGATIVE) Urine Bilirubin NEGATIVE (NEGATIVE) Urine Urobilinogen NORMAL (0-1) mg/dL Ur Leukocyte Esterase NEGATIVE (NEGATIVE) Urine Microscopic RBC 2-5 (0-2) /HPF Urine Microscopic WBC 0-2 (0-5) /HPF Ur Epithelial Cells FEW (FEW) /HPF Urine Culture Reflexed NO (NO) Urine Glucose NEGATIVE (NEGATIVE) mg/dL Specimen Received 09/15/2017 10 09/18/17 Range/Units 09:50 WBC 4.8 (4.0-10.5) K/mm3 RBC 4.58 (4.1-5.4) M/mm3 Hgb 12.8 (12.0-16.0) gm/dl Hct 39.3 (35-47) % MCV 85.8 (78-100) fl MCH 27.9 (26-32) pg MCHC 32.6 (32-36) g/dl RDW 13.9 (11.5-14.0) % Plt Count 237 (150-450) K/mm3 MPV 10.2 H (6-9.5) fl Gran % 55.9 (36.0-66.0) % Eos # (Auto) 0.08 (0-0.5) Absolute Lymphs (auto) 1.61 (1.0-4.6) Absolute Monos (auto) 0.40 (0.0-1.3) Lymphocytes % 33.6 (24.0-44.0) % Monocytes % 8.4 (0.0-12.0) % Eosinophils % 1.7 (0.00-5.0) % Basophils % 0.4 (0.0-0.4) % Absolute Granulocytes 2.68 (1.4-6.9) Basophils # 0.02 (0-0.4) Sodium (137-145) mmol/L Potassium (3.5-5.1) mmol/L Chloride (98-107) mmol/L Carbon Dioxide (22-30) mmol/L Anion Gap (5-15) MEQ/L BUN (7-17) mg/dL Creatinine (0.52-1.04) mg/dL Estimated GFR ML/MIN Glucose (74-106) mg/dL Calcium (8.4-10.2) mg/dL Total Bilirubin (0.2-1.3) mg/dL AST (14-36) U/L ALT (0-35) U/L Alkaline Phosphatase (38-126) U/L Serum Total Protein (6.3-8.2) g/dL Albumin (3.5-5.0) g/dL Amylase (30-110) U/L Lipase (23-300) U/L Serum , Qual (Negative) Ur Collection Type Urine Color (YELLOW) Urine Appearance (CLEAR) Urine pH (5-6) Ur Specific [place] (1.005-1.025) Urine Protein (Negative) Urine Ketones (NEGATIVE) Urine Blood (0-5) Merlin/ul Urine Nitrite (NEGATIVE) Urine Bilirubin (NEGATIVE) Urine Urobilinogen (0-1) mg/dL Ur Leukocyte Esterase (NEGATIVE) Urine Microscopic RBC (0-2) /HPF Urine Microscopic WBC (0-5) /HPF Ur Epithelial Cells (FEW) /HPF Urine Culture Reflexed (NO) Urine Glucose (NEGATIVE) mg/dL Specimen Received - Progress Progress: improved Progress Note: 09/18/17 12:[address] scan abd/pelvis and pelvic US does not show any acute findings. The KUB shows a moderate amount of constipation. The labs are within normal limits. The patient will be given a bottle of magnesium citrate and will be started on miralax. - Departure Time of Disposition: 12:51 Departure Disposition: Home Clinical Impression: Constipation Qualifiers: Constipation type: unspecified constipation type Qualified Code(s): K59.00 - Constipation, unspecified Condition: Stable Critical Care Time: No Referrals: FELIX VILLAGRAN [Primary Care Provider] - Instructions: Constipation, Adult (DC) Additional Instructions: Follow up with your primary care doctor if you should continue to have abdominal pain. Prescriptions: Polyethylene Glycol 3350 17 gm [Miralax Powder 17GM PACKET] 17 gm PO DAILY # 1 packet
[2017-09-18] MEDS ORDERED: TORAdol 30 mg Injection ONE (09:53)
[2017-09-18 09:56] LABS: BASOPHIL % 0.4 % (0.0-0.4); Basophil (Absolute #) 0.02 (0-0.4); Eosinophil % 1.7 % (0.00-5.0); Eosinophil (Absolute #) 0.08 (0-0.5); Granulocyte Absolute (ANC) 2.68 (1.4-6.9); Granulocytes % 55.9 % (36.0-66.0); Hematocrit 39.3 % (35-47); Hemoglobin 12.8 gm/dl (12.0-16.0); Lymphocyte (Absolute #) 1.61 (1.0-4.6); Lymphocytes % 33.6 % (24.0-44.0); Mean Cell Volume 85.8 fl (78-100); Mean Corpuscular Hemoglobin 27.9 pg (26-32); Mean Corpuscular Hgb Concent. 32.6 g/dl (32-36); Mean Platelet Volume 10.2 fl (6-9.5); Monocytes % 8.4 % (0.0-12.0); Platelet Count 237 K/mm3 (150-450); Red Blood Count 4.58 M/mm3 (4.1-5.4); Red Cell Distribution Width 13.9 % (11.5-14.0); White Blood Count 4.8 K/mm3 (4.0-10.5)
[2017-09-18 10:12] LABS: ALBUMIN 4.1 g/dL (3.5-5.0); ALKALINE PHOSPHATASE 73 U/L (38-126); AMYLASE 106 U/L (30-110); BLOOD UREA NITROGEN 21 mg/dL (7-17); CHLORIDE 106 mmol/L (98-107); Calcium 9.3 mg/dL (8.4-10.2); Carbon Dioxide 25 mmol/L (22-30); Creatinine 1 0.97 mg/dL (0.52-1.04); Glucose 84 mg/dL (74-106); LIPASE 65 U/L (23-300); Potassium 4.2 mmol/L (3.5-5.1); SGOT/AST 22 U/L (14-36); SGPT/ALT 17 U/L (0-35); SODIUM 143 mmol/L (137-145); Total Protein 7.4 g/dL (6.3-8.2)
[2017-09-18 10:17] LABS: Appearance CLEAR (CLEAR); Bilirubin NEGATIVE (NEGATIVE); Blood 50 Ery/ul (0-5); Epithelial Cells FEW /HPF (FEW); Glucose NEGATIVE (NEGATIVE); Ketones NEGATIVE (NEGATIVE); Leukocyte Esterase NEGATIVE (NEGATIVE); Nitrite NEGATIVE (NEGATIVE); Protein,Urine Dip NEGATIVE (Negative); Specific Gravity 1.015 (1.005-1.025); Urobilinogen NORMAL mg/dL (0-1); WBC 0-2 /HPF (0-5)
[2017-09-18] MEDS ORDERED: MORPHINE SULFATE 4 MG INJ IV ONE (11:05)
[2017-09-18] MEDS ORDERED: solu-CORTEF 100MG IV ONE (11:11)
[2017-09-18] MEDS ORDERED: BENADRYL 50 MG/ML IV ONE (11:11)
[2017-09-18] MEDS ORDERED: Sodium Chloride 0.9% 1000 ML 1,000 ML IV STA (11:11)
[2017-09-18] MEDS ORDERED: MORPHINE SULFATE 4 MG INJ ONE (11:11)
[2017-09-18] MEDS ORDERED: solu-CORTEF 100MG ONE (11:22)
[2017-09-18] MEDS ORDERED: Sodium Chloride 0.9% 1000 ML 1,000 ML ONE (11:22)
[2017-09-18] MEDS ORDERED: BENADRYL 50 MG/ML ONE (11:32)
[2017-09-18] MEDS ORDERED: CITROMA 296 ML PO ONE (12:49)
[2017-09-18] MEDS ORDERED: CITROMA 296 ML ONE (12:55)
[2017-09-18 13:04] VITALS: BP 114/68; PULSE 52
--- NOTE | 2017-09-18 20:44 | XRAY ---
Indication: Left lower quadrant abdominal pain 3 days. Multiple contiguous axial images obtained through the abdomen and pelvis using 80 cc Isovue 370 contrast only. Comparison: April 24, 2017. Lung bases again demonstrates minimal bibasilar dependent atelectasis, and right base calcified granuloma. Heart is not enlarged. Noncontrasted stomach and bowel loops appear nonobstructed. Again diffuse scattered colonic fecal debris throughout. Normal appendix. No free fluid/air. Previous right renal microcalculus obscured on this contrasted exam. Stable calcified splenic granulomas. Remaining liver, gallbladder, pancreas, spleen, adrenal glands, kidneys, ureters, bladder, uterus, and aorta appear unremarkable. No pathologic retroperitoneal lymphadenopathy. Osseous structures intact. Impression: 1. Again fecal stasis without obstruction. 2. Again evidence for old granulomatous disease. 3. No new or acute intra-abdominal/pelvic abnormalities. Comment: Preliminary interpretation was made by [facility]. No discrepancy. CTDI 23.68
--- NOTE | 2017-09-18 20:46 | XRAY ---
Indication: Left abdominal pain. Constipation. Comparison: November 22, 2016. KUB nonacute and nonobstructed with now mild diffuse scattered colonic fecal debris. Solid organs and osseous structures unremarkable. Lung bases clear. Impression: Fecal stasis without obstruction.
--- NOTE | 2017-09-18 20:47 | XRAY ---
Indication: Left lower quadrant pain. Two-dimensional transvaginal pelvic ultrasound was performed. Comparison: May 07, 2011. Uterus is again anteverted today measuring 7.9 x 4.3 x 5.2 cm. Myometrium homogeneous. Endometrial stripe measures 7.2 mm in thickness. No endometrial cavity mass or fluid collection. Right ovary measures 2.5 x 1.4 x 2.7 cm and the left measures 2.8 x 2.0 x 2.3 cm. Normal follicular cysts and perfusion bilaterally. No suspicious adnexal mass or free fluid. Impression: Again negative transvaginal pelvic ultrasound. Comment: Preliminary report was given.
== END 2017-09-18 13:05 | disposition home or self-care (01) ==
LOC: ED 09:23
DX: K59.00 Constipation, unspecified (principal); R11.0 Nausea; Z79.899 Other long term (current) drug therapy
CPT/HCPCS: 36000; 36415; 74018; 74177; 76830; 80053; 81000; 82150; 83690; 84703; 85025; 96360; 96374; 96375; 99285; J1200; J1720; J1885; J2270; J2405; A9270-GY

== ENCOUNTER 2017-12-15 13:22 | Emergency (ER) | payer OTHER ==
--- NOTE | 2017-12-15 14:05 | ERPHSYRPT ---
- History of Present Illness Time Seen by Provider: 12/15/17 13:55 Historian: patient Exam Limitations: no limitations Patient Subjective Stated Complaint: CP since wednesday. states she passed out at work on wednesday and went to [facility] ER. pain in left chest to shoulder..the chest pain has not stopped since Wednesday Triage Nursing Assessment: alert and anxious. states she was seen at [facility] for the same.. continued consistent pain since. denies injury. pain reproducable with movment and palpation. lungs clear bilaterally. Physician History: 37-year-old obese white female with history of migraines, hypothyroidism, high blood pressure, GERD, pancreatitis, fibromyalgia Arrives with complaint of pain in the left upper anterior chest radiates to the back associated with shortness of breath nausea. Symptoms intermittent since Wednesday 4 days ago. Patient has been seen at [facility] for the same for 4 days ago. Past medical history includes migraines, hypothyroidism, high blood pressure, GERD, pancreatitis, polyps, endometriosis, I will myalgia, anxiety, Tourette's. Past surgical history includes D&C. Timing/Duration: day(s) (4 days) Quality: pressure Location: other (left upper anterior chest) Chest Pain Radiation: back Severity of Pain-Max: moderate Severity of Pain-Current: mild Modifying Factors: Improves With: nothing Associated Symptoms: nausea, shortness of breath, hurts to breathe, No vomiting , No palpitations, No heartburn, No abdominal pain, No cough, No diaphoresis, No chills, No fever, No fatigue, No weakness, No swelling/lump in chest, No syncope, No rash, No headache, No dizziness, No edema, No back pain Prior Chest Pain/Cardiac Workup: no prior chest pain Nitro Today/Relief: no nitro taken today Aspirin Treatment Today: no aspirin today Allergies/Adverse Reactions: blueberry Allergy (Severe, Verified 09/18/17 09:43) Swelling hydrocodone bitartrate [From Vicodin] Allergy (Severe, Verified 11/22/16 12:33) Hives Sulfa (Sulfonamide Antibiotics) [Sulfa(Sulfonamide Antibiotics)] Allergy (Severe , Verified 11/22/16 12:33) Hives codeine [Codeine] Allergy (Intermediate, Verified 11/22/16 12:33) Hives ibuprofen Allergy (Verified 11/22/16 12:33) [id number] Antimigraine Agents Allergy (Verified 11/22/16 12:33) ANY KIND OF MIGRAINE MED Allergy (Intermediate, Uncoded 11/22/16 12:33) Hives Home Medications: Ezetimibe 10 mg [Zetia 10 MG] 10 mg PO HS 02/11/14 [History] Levothyroxine Sodium [Synthroid] 300 mcg PO DAILY 02/11/14 [History] Omeprazole [Prilosec] 40 mg PO BID 02/11/14 [History] Topiramate 100 mg [Topamax 100 MG] 50 mg PO BID 02/11/14 [History] Atorvastatin Calcium [Lipitor] 40 mg PO DAILY 11/22/16 [History] Lisinopril [Zestril] 2.5 mg PO DAILY 11/22/16 [History] Paroxetine HCl [Paxil] 10 mg PO DAILY 11/22/16 [History] Tramadol HCl 50 mg PO DAILY 09/18/17 [History] Hx Tetanus, Diphtheria Vaccination/Date Given: Yes Hx Influenza Vaccination/Date Given: Yes Hx Pneumococcal Vaccination/Date Given: No - Review of Systems Constitutional: No Fever, No Chills Eyes: No Symptoms Ears, Nose, & Throat: No Symptoms Respiratory: No Cough, No Dyspnea Cardiac: Chest Pain Abdominal/Gastrointestinal: Nausea, No Abdominal Pain, No Vomiting, No Diarrhea , No Constipation, No Hematemesis, No Hematochezia, No Melena, No Appetite Changes Genitourinary Symptoms: No Dysuria Musculoskeletal: No Back Pain, No Neck Pain Skin: No Rash Neurological: No Dizziness, No Focal Weakness, No Sensory Changes Psychological: No Symptoms Endocrine: No Symptoms All Other Systems: Reviewed and Negative - Past Medical History Pertinent Past Medical History: Yes Neurological History: Migraines, Other ENT History: No Pertinent History Cardiac History: Hypertension Respiratory History: No Pertinent History Endocrine Medical History: Hypothyroidism Musculoskeletal History: Fibromyalgia GI Medical History: GERD, Pancreatitis, Polyps History: Other Psycho-Social History: Anxiety Female Reproductive Disorders: Endometriosis, Other Other Medical History: TOURETTE'S - Past Surgical History Past Surgical History: Yes Neuro Surgical History: No Pertinent History Cardiac: No Pertinent History Respiratory: No Pertinent History Gastrointestinal: No Pertinent History Genitourinary: No Pertinent History Musculoskeletal: No Pertinent History Female Surgical History: Other Other Surgical History: D&C 05/22/2013 - Social History Smoking Status: Never smoker Exposure to second hand smoke: No Drug Use: none Patient Lives Alone: No Significant Family History: heart disease, cancer, diabetes - Female History Hx Now: No - Nursing Vital Signs Nursing Vital Signs: Initial Vital Signs Temperature 98.2 F 12/15/17 13:33 Pulse Rate 58 L 12/15/17 13:33 Respiratory Rate 22 12/15/17 13:33 Blood Pressure 144/96 12/15/17 13:33 O2 Sat by Pulse Oximetry 99 12/15/17 13:33 Pain Scale Pain Intensity 0 - Physical Exam General Appearance: no apparent distress, alert, obese Eye Exam: PERRL/EOMI, eyes nml inspection Ears, Nose, Throat Exam: normal ENT inspection, moist mucous membranes Neck Exam: normal inspection, non-tender, supple, full range of motion Respiratory Exam: normal breath sounds, lungs clear, No respiratory distress Cardiovascular Exam: regular rate/rhythm, normal heart sounds Gastrointestinal/Abdomen Exam: soft, normal bowel sounds, No tenderness, No mass Back Exam: normal inspection, No CVA tenderness, No vertebral tenderness Extremity Exam: normal inspection, normal range of motion Neurologic Exam: alert, oriented x 3, cooperative, last repairer II-XII nml as tested, normal mood/affect, sensation nml, No motor deficits Skin Exam: normal color, warm, dry SpO2 Interpretation: normal (99%) SpO2: 99 Oxygen Delivery: Room Air - Course Nursing assessment & vital signs reviewed: Yes EKG Interpreted by Me: RATE (58 bpm), Sinus Mateo, Other (EKG: Sinus bradycardia 58 bpm, AXIS SI/QIII pattern,no acute ST or T wave changes noted) - Radiology Exams Chest X-ray Interpretation: Discussed w/ radiologist (chest x-ray: Normal heart and lungs with mediastinal/right hilar calcified nodes. Bony thorax intact. No new/acute finding) Ordered Tests: Active Orders 24 hr Category Date Time Status Photographic Technician STAT Care 12/15/17 13:59 Active EKG-ER Only STAT Care 12/15/17 13:59 Active EKG-ER Only STAT Care 12/15/17 18:05 Active IV Insertion STAT Care 12/15/17 13:59 Active Pulse Oximetry (ED) STAT Care 12/15/17 13:59 Active CHEST 1 VIEW (PORTABLE) Stat Exams 12/15/17 13:59 Completed AMYLASE Routine Lab 12/15/17 14:09 Completed CBC W DIFF Stat Lab 12/15/17 14:09 Completed CMP Routine Lab 12/15/17 14:09 Completed D-DIMER QUANTITATION Stat Lab 12/15/17 14:09 Completed HCG QUALITATIVE,SERUM Stat Lab 12/15/17 14:09 Completed LIPASE Routine Lab 12/15/17 14:09 Completed TROPONIN Q3H Lab 12/15/17 14:09 Completed TROPONIN Q3H Lab 12/15/17 16:56 Completed TROPONIN Q3H Lab 12/15/17 20:00 Ordered TROPONIN Q3H Lab 12/15/17 23:00 Ordered TROPONIN Q3H Lab 12/16/17 02:00 Ordered Medication Summary Discontinued Medications Generic Name Dose Route Start Last Admin Trade Name Freq PRN Reason Stop Dose Admin Aspirin 324 mg 12/15/17 15:23 12/15/17 15:31 Baby Aspirin 81 Mg Chew PO 12/15/17 15:24 324 mg STAT ONE Administration Aspirin Confirm 12/15/17 15:31 Baby Aspirin 81 Mg Chew Administered 12/15/17 15:32 Dose 324 mg .ROUTE .STK-MED ONE Morphine Sulfate 4 mg 12/15/17 14:55 12/15/17 14:57 Morphine Sulfate 4 Mg Inj IV 12/15/17 14:56 4 mg STAT ONE Administration Morphine Sulfate Confirm 12/15/17 14:57 Morphine Sulfate 4 Mg Inj Administered 12/15/17 14:58 Dose 4 mg .ROUTE .STK-MED ONE Ondansetron HCl 4 mg 12/15/17 15:09 12/15/17 15:12 Zofran 4 Mg/2 Ml Vial IV 12/15/17 15:10 4 mg STAT ONE Administration Ondansetron HCl Confirm 12/15/17 15:11 Zofran 4 Mg/2 Ml Vial Administered 12/15/17 15:12 Dose 4 mg .ROUTE .STK-MED ONE Lab/Rad Data: Laboratory Result Diagrams 12/15/17 14:09 12/15/17 14:09 Laboratory Results 12/15/17 12/15/17 12/15/17 Range/Units 16:56 14:09 14:09 WBC (4.0-10.5) K/mm3 RBC (4.1-5.4) M/mm3 Hgb (12.0-16.0) gm/dl Hct (35-47) % MCV (78-100) fl MCH (26-32) pg MCHC (32-36) g/dl RDW (11.5-14.0) % Plt Count (150-450) K/mm3 MPV (6-9.5) fl Gran % (36.0-66.0) % Eos # (Auto) (0-0.5) Absolute Lymphs (auto) (1.0-4.6) Absolute Monos (auto) (0.0-1.3) Lymphocytes % (24.0-44.0) % Monocytes % (0.0-12.0) % Eosinophils % (0.00-5.0) % Basophils % (0.0-0.4) % Absolute Granulocytes (1.4-6.9) Basophils # (0-0.4) D-Dimer (215-500) ng/mL Sodium 142 (137-145) mmol/L Potassium 4.0 (3.5-5.1) mmol/L Chloride 109 H (98-107) mmol/L Carbon Dioxide 23 (22-30) mmol/L Anion Gap 14.0 (5-15) MEQ/L BUN 21 H (7-17) mg/dL Creatinine 0.90 (0.52-1.04) mg/dL Estimated GFR > 60.0 ML/MIN Glucose 83 (74-106) mg/dL Calcium 9.7 (8.4-10.2) mg/dL Total Bilirubin 0.40 (0.2-1.3) mg/dL AST 19 (14-36) U/L ALT 12 (0-35) U/L Alkaline Phosphatase 62 (38-126) U/L Troponin I < 0.012 < 0.012 (0.000-0.034) ng/mL Serum Total Protein 7.7 (6.3-8.2) g/dL Albumin 4.4 (3.5-5.0) g/dL Amylase 145 H (30-110) U/L Lipase 158 (23-300) U/L Serum , Qual NEGATIVE (Negative) 12/15/17 12/15/17 Range/Units 14:09 14:09 WBC 5.1 (4.0-10.5) K/mm3 RBC 4.31 (4.1-5.4) M/mm3 Hgb 12.4 (12.0-16.0) gm/dl Hct 38.2 (35-47) % MCV 88.6 (78-100) fl MCH 28.8 (26-32) pg MCHC 32.5 (32-36) g/dl RDW 14.9 H (11.5-14.0) % Plt Count 222 (150-450) K/mm3 MPV 10.3 H (6-9.5) fl Gran % 55.0 (36.0-66.0) % Eos # (Auto) 0.10 (0-0.5) Absolute Lymphs (auto) 1.76 (1.0-4.6) Absolute Monos (auto) 0.41 (0.0-1.3) Lymphocytes % 34.4 (24.0-44.0) % Monocytes % 8.0 (0.0-12.0) % Eosinophils % 2.0 (0.00-5.0) % Basophils % 0.6 (0.0-0.4) % Absolute Granulocytes 2.82 (1.4-6.9) Basophils # 0.03 (0-0.4) D-Dimer 307 (215-500) ng/mL Sodium (137-145) mmol/L Potassium (3.5-5.1) mmol/L Chloride (98-107) mmol/L Carbon Dioxide (22-30) mmol/L Anion Gap (5-15) MEQ/L BUN (7-17) mg/dL Creatinine (0.52-1.04) mg/dL Estimated GFR ML/MIN Glucose (74-106) mg/dL Calcium (8.4-10.2) mg/dL Total Bilirubin (0.2-1.3) mg/dL AST (14-36) U/L ALT (0-35) U/L Alkaline Phosphatase (38-126) U/L Troponin I (0.000-0.034) ng/mL Serum Total Protein (6.3-8.2) g/dL Albumin (3.5-5.0) g/dL Amylase (30-110) U/L Lipase (23-300) U/L Serum , Qual (Negative) - Progress Progress: improved (we will treat with your) Air Movement: fair Progress Note: 12/15/17 15:18 This is a 37-year-old white female with history of migraines, hypothyroidism, high blood pressure, GERD, pancreatitis, polyps, endometriosis, fibromyalgia, anxiety, Tourette's She has been having anterior chest pain for 4 days she was seen at [facility] last Wednesday and a Holter monitor was placed. She states she was short of breath with her symptoms also with nausea she also did state some time she had pain with breathing. Patient's with normal vitals upon arrival to the emergency room, Patient's EKG on arrival remarkable for sinus bradycardia 58 bpm axis SI/QIII pattern, there are no acute ST or T wave changes were noted patient with negative hCG normal CBC normal d-dimer essentially normal chemistry with a normal troponin. Patient is given morphine 4 mg Zofran 4 mg for pain she is feeling better at this time. Will plan to repeat troponin on this patient. 12/15/17 15:23 Patient states she has not taken any aspirin she states she is not allergic to aspirin. Patient's hCG is negative. Will give patient aspirin 324 mg orally. 12/15/17 15:25 Although the patient's chart shows that she is allergic to ibuprofen and she acknowledges this, she states she has had aspirin in the past and has no problems with this medication. 12/15/17 18:44 Patient stable at this time. Repeat troponin within normal limits. Patient has been noted to have a heart rate into the 50s and 40s blood pressure has been stable. Repeat EKG sinus bradycardia 41 bpm normal axis no acute ST or T wave changes are noted. 12/15/17 18:52 I discussed the patient's case with Dr. bravo. She requested that I discussed the patient's case with Dr. Schilling in view of the patient's bradycardia. 12/15/17 18:59 I discussed the patient's case with Dr. Schilling he states that the patient can go home she may follow-up with Naomi. in his office. - Departure Time of Disposition: 18:59 Departure Disposition: Home Clinical Impression: Non-cardiac chest pain, Bradycardia Condition: Fair Critical Care Time: No Referrals: FELIX BRAVO [Primary Care Provider] - Additional Instructions: return home, rest Follow-up with Return for acute distress or for severe symptoms. Tramadol as directed. Prescriptions: Tramadol HCl 50 mg [Ultram 50 mg] 50 mg PO Q6H PRN PRN #10 tablet MDD 4 tablets PRN Reason: Pain
--- NOTE | 2017-12-15 14:18 | XRAY ---
Indication: Chest pain. Comparison: November 22, 2016. Portable chest again demonstrates normal heart and lungs with mediastinal/right hilar calcified nodes. Bony thorax intact. No new/acute findings.
[2017-12-15 14:23] LABS: BASOPHIL % 0.6 % (0.0-0.4); Basophil (Absolute #) 0.03 (0-0.4); Granulocyte Absolute (ANC) 2.82 (1.4-6.9); Hematocrit 38.2 % (35-47); Hemoglobin 12.4 gm/dl (12.0-16.0); Lymphocyte (Absolute #) 1.76 (1.0-4.6); Lymphocytes % 34.4 % (24.0-44.0); Mean Cell Volume 88.6 fl (78-100); Mean Corpuscular Hemoglobin 28.8 pg (26-32); Mean Corpuscular Hgb Concent. 32.5 g/dl (32-36); Mean Platelet Volume 10.3 fl (6-9.5); Monocyte (Absolute #) 0.41 (0.0-1.3); Platelet Count 222 K/mm3 (150-450); Red Blood Count 4.31 M/mm3 (4.1-5.4); Red Cell Distribution Width 14.9 % (11.5-14.0); White Blood Count 5.1 K/mm3 (4.0-10.5)
[2017-12-15 14:41] LABS: ALBUMIN 4.4 g/dL (3.5-5.0); ALKALINE PHOSPHATASE 62 U/L (38-126); AMYLASE 145 U/L (30-110); BLOOD UREA NITROGEN 21 mg/dL (7-17); CHLORIDE 109 mmol/L (98-107); Calcium 9.7 mg/dL (8.4-10.2); Carbon Dioxide 23 mmol/L (22-30); Glucose 83 mg/dL (74-106); LIPASE 158 U/L (23-300); SGOT/AST 19 U/L (14-36); SGPT/ALT 12 U/L (0-35); SODIUM 142 mmol/L (137-145); Total Protein 7.7 g/dL (6.3-8.2)
[2017-12-15 14:43] LABS: TROPONIN < 0.012 ng/mL (0.000-0.034)
[2017-12-15] MEDS ORDERED: MORPHINE SULFATE 4 MG INJ ONE (14:57)
[2017-12-15] MEDS: MORPHINE SULFATE 4 MG INJ IV ONE (14:57)
[2017-12-15] MEDS ORDERED: Zofran 4 MG/2 ML VIAL ONE (15:11)
[2017-12-15] MEDS: Zofran 4 MG/2 ML VIAL IV ONE (15:12)
[2017-12-15] MEDS: BABY ASPIRIN 81 MG CHEW PO ONE (15:31)
[2017-12-15] MEDS ORDERED: BABY ASPIRIN 81 MG CHEW ONE (15:31)
[2017-12-15 18:45] VITALS: O2SAT 99
[2017-12-15 19:19] VITALS: BP 123/77; PULSE 53
== END 2017-12-15 19:19 | disposition home or self-care (01) ==
LOC: ED 13:22
DX: R07.89 Other chest pain (principal); R00.1 Bradycardia, unspecified; I10 Essential (primary) hypertension; E03.9 Hypothyroidism, unspecified; M79.7 Fibromyalgia; K21.9 Gastro-esophageal reflux disease without esophagitis; F41.9 Anxiety disorder, unspecified; Z79.899 Other long term (current) drug therapy
CPT/HCPCS: 36000; 36415; 71045; 80053; 82150; 83690; 84484; 84703; 85025; 85379; 93005; 93041; 96374; 96375; 99284; J2270; J2405; A9270-GY

== ENCOUNTER 2017-12-16 22:33 | Emergency (ER) | payer OTHER ==
[2017-12-16] MEDS ORDERED: Zofran 4 MG/2 ML VIAL IV ONE (22:49)
[2017-12-16] MEDS ORDERED: TORAdol 30 mg Injection IV ONE (22:49)
[2017-12-16 22:50] VITALS: BP 116/68; PULSE 80; O2SAT 100
--- NOTE | 2017-12-16 22:55 | ERPHSYRPT ---
- History of Present Illness Time Seen by Provider: 12/16/17 22:40 Historian: patient Exam Limitations: no limitations Patient Subjective Stated Complaint: chest pain that radiates to the left arm and back Triage Nursing Assessment: Pt alert and oriented and complains of chest pain that radiates to her left shoulder and down her arm and also to her back, states that sometimes the pain makes her head feel like fire, pulses normal, vitals wnl, no edema, bowel sounds heard in all 4 quadrants, appears uncomfortable Physician History: 37 y/o female comes to the ER with complaints of substernal chest pain that has been ongoing since Wednesday. Pt was seen at [facility], by her PCP, at this ER and by her battery tester field over the past several days and she was supposed to have an echo performed. Pt did complain of passing out just prior to arrival. Pt describes the pain as sharp, intermittent, worse with inspiration, 6/10 and pt has not taken any pain meds. Pt also admits to shortness of breath. Timing/Duration: day(s) Activities at Onset: none Quality: sharpness Location: substernal Chest Pain Radiation: back Severity of Pain-Max: moderate Severity of Pain-Current: moderate Modifying Factors: Improves With: nothing Associated Symptoms: shortness of breath, No dizziness Prior Chest Pain/Cardiac Workup: no prior chest pain Nitro Today/Relief: no nitro taken today Aspirin Treatment Today: no aspirin today Allergies/Adverse Reactions: blueberry Allergy (Severe, Verified 09/18/17 09:43) Swelling hydrocodone bitartrate [From Vicodin] Allergy (Severe, Verified 12/16/17 22:51) Hives Sulfa (Sulfonamide Antibiotics) [Sulfa(Sulfonamide Antibiotics)] Allergy (Severe , Verified 11/22/16 12:33) Hives codeine [Codeine] Allergy (Intermediate, Verified 11/22/16 12:33) Hives adhesive Allergy (Verified 12/16/17 22:51) ibuprofen Allergy (Verified 11/22/16 12:33) [id number] Antimigraine Agents Allergy (Verified 11/22/16 12:33) ANY KIND OF MIGRAINE MED Allergy (Intermediate, Uncoded 11/22/16 12:33) Hives Home Medications: Ezetimibe 10 mg [Zetia 10 MG] 10 mg PO HS 02/11/14 [History] Levothyroxine Sodium [Synthroid] 300 mcg PO DAILY 02/11/14 [History] Omeprazole [Prilosec] 40 mg PO BID 02/11/14 [History] Topiramate 100 mg [Topamax 100 MG] 50 mg PO BID 02/11/14 [History] Atorvastatin Calcium [Lipitor] 40 mg PO DAILY 11/22/16 [History] Lisinopril [Zestril] 2.5 mg PO DAILY 11/22/16 [History] Paroxetine HCl [Paxil] 10 mg PO DAILY 11/22/16 [History] Tramadol HCl 50 mg PO DAILY 09/18/17 [History] Hx Tetanus, Diphtheria Vaccination/Date Given: Yes Hx Influenza Vaccination/Date Given: Yes Hx Pneumococcal Vaccination/Date Given: No - Review of Systems Constitutional: No Fever, No Chills Eyes: No Symptoms Ears, Nose, & Throat: No Symptoms Respiratory: Dyspnea, No Cough Cardiac: Chest Pain, No Edema, No Syncope Abdominal/Gastrointestinal: No Abdominal Pain, No Nausea, No Vomiting, No Diarrhea Genitourinary Symptoms: No Dysuria Musculoskeletal: No Back Pain, No Neck Pain Skin: No Rash Neurological: No Dizziness, No Focal Weakness, No Sensory Changes Psychological: No Symptoms Endocrine: No Symptoms All Other Systems: Reviewed and Negative - Past Medical History Pertinent Past Medical History: Yes Neurological History: Migraines, Other ENT History: No Pertinent History Cardiac History: Hypertension Respiratory History: No Pertinent History Endocrine Medical History: Hypothyroidism Musculoskeletal History: Fibromyalgia GI Medical History: GERD, Pancreatitis, Polyps History: Other Psycho-Social History: Anxiety Female Reproductive Disorders: Endometriosis, Other Other Medical History: TOURETTE'S - Past Surgical History Past Surgical History: Yes Neuro Surgical History: No Pertinent History Cardiac: No Pertinent History Respiratory: No Pertinent History Gastrointestinal: No Pertinent History Genitourinary: No Pertinent History Musculoskeletal: No Pertinent History Female Surgical History: Other Other Surgical History: D&C 05/22/2013 - Social History Smoking Status: Smoker, status unknown Exposure to second hand smoke: No Drug Use: none Patient Lives Alone: No Significant Family History: heart disease, cancer, diabetes - Female History Hx Last Menstrual Period: 11/29/2017 Hx Now: No - Nursing Vital Signs Nursing Vital Signs: Initial Vital Signs Temperature 97.7 F 12/16/17 22:40 Pulse Rate 80 12/16/17 22:40 Blood Pressure 116/68 12/16/17 22:40 O2 Sat by Pulse Oximetry 100 12/16/17 22:40 Pain Scale Pain Intensity 7 - Physical Exam General Appearance: no apparent distress, alert, obese Eye Exam: PERRL/EOMI, eyes nml inspection Ears, Nose, Throat Exam: normal ENT inspection, moist mucous membranes Neck Exam: normal inspection, non-tender, supple, full range of motion Respiratory Exam: normal breath sounds, lungs clear, No respiratory distress Cardiovascular Exam: regular rate/rhythm, normal heart sounds, normal peripheral pulses Gastrointestinal/Abdomen Exam: soft, No tenderness, No mass Back Exam: normal inspection, No CVA tenderness, No vertebral tenderness Extremity Exam: normal inspection, normal range of motion Neurologic Exam: alert, oriented x 3, cooperative, normal mood/affect, sensation nml, No motor deficits Skin Exam: normal color, warm, dry SpO2: 100 Oxygen Delivery: Room Air - Course Nursing assessment & vital signs reviewed: Yes EKG Interpreted by Me: RATE, NORMAL AXIS, NORMAL INTERVALS, NORMAL QRS, NORMAL ST-T Ordered Tests: Active Orders 24 hr Category Date Time Status Computer Systems Technology Instructor STAT Care 12/16/17 22:47 Active IV Insertion STAT Care 12/16/17 22:46 Active CHEST 2 VIEWS (PA AND LAT) Stat Exams 12/16/17 22:47 Taken CBC W DIFF Stat Lab 12/16/17 23:00 Completed CK-Creatinine Phosphokinase Stat Lab 12/16/17 23:00 Completed CMP Stat Lab 12/16/17 23:00 Completed NT PRO BNP Stat Lab 12/16/17 23:00 Completed TROPONIN Q3H Lab 12/16/17 23:00 Completed TROPONIN Q3H Lab 12/17/17 02:00 Ordered TROPONIN Q3H Lab 12/17/17 05:00 Ordered TROPONIN Q3H Lab 12/17/17 08:00 Ordered TROPONIN Q3H Lab 12/17/17 11:00 Ordered Medication Summary Discontinued Medications Generic Name Dose Route Start Last Admin Trade Name Freq PRN Reason Stop Dose Admin Ketorolac Tromethamine 30 mg 12/16/17 22:49 12/16/17 23:19 Toradol 30 Mg Injection IV 12/16/17 22:50 30 mg STAT ONE Administration Ketorolac Tromethamine Confirm 12/16/17 23:18 Toradol 30 Mg Injection Administered 12/16/17 23:19 Dose 30 mg .ROUTE .STK-MED ONE Ondansetron HCl 4 mg 12/16/17 22:49 12/16/17 23:20 Zofran 4 Mg/2 Ml Vial IV 12/16/17 22:50 4 mg STAT ONE Administration Ondansetron HCl Confirm 12/16/17 23:17 Zofran 4 Mg/2 Ml Vial Administered 12/16/17 23:18 Dose 4 mg .ROUTE .STK-MED ONE Lab/Rad Data: Laboratory Result Diagrams 12/16/17 23:00 12/16/17 23:00 Laboratory Results 12/16/17 12/16/17 12/16/17 Range/Units 23:00 23:00 23:00 WBC 5.9 (4.0-10.5) K/mm3 RBC 4.28 (4.1-5.4) M/mm3 Hgb 12.4 (12.0-16.0) gm/dl Hct 38.4 (35-47) % MCV 89.7 (78-100) fl MCH 29.0 (26-32) pg MCHC 32.3 (32-36) g/dl RDW 14.9 H (11.5-14.0) % Plt Count 229 (150-450) K/mm3 MPV 10.1 H (6-9.5) fl Gran % 57.4 (36.0-66.0) % Eos # (Auto) 0.11 (0-0.5) Absolute Lymphs (auto) 1.89 (1.0-4.6) Absolute Monos (auto) 0.45 (0.0-1.3) Lymphocytes % 32.3 (24.0-44.0) % Monocytes % 7.7 (0.0-12.0) % Eosinophils % 1.9 (0.00-5.0) % Basophils % 0.7 (0.0-0.4) % Absolute Granulocytes 3.37 (1.4-6.9) Basophils # 0.04 (0-0.4) Sodium 142 (137-145) mmol/L Potassium 3.9 (3.5-5.1) mmol/L Chloride 107 (98-107) mmol/L Carbon Dioxide 24 (22-30) mmol/L Anion Gap 14.7 (5-15) MEQ/L BUN 24 H (7-17) mg/dL Creatinine 1.11 H (0.52-1.04) mg/dL Estimated GFR 58.5 ML/MIN Glucose 87 (74-106) mg/dL Calcium 9.2 (8.4-10.2) mg/dL Total Bilirubin 0.40 (0.2-1.3) mg/dL AST 17 (14-36) U/L ALT 13 (0-35) U/L Alkaline Phosphatase 65 (38-126) U/L Creatine Kinase 167 H (30-135) U/L Troponin I < 0.012 (0.000-0.034) ng/mL NT-Pro-B Natriuret Pep 28.4 (0-450) pg/mL Serum Total Protein 7.6 (6.3-8.2) g/dL Albumin 4.4 (3.5-5.0) g/dL - Progress Progress: improved Progress Note: 12/16/17 23:49 The cardiac workup is once again within normal limits. The CXR is within normal limits. Pt feels better after receiving toradol and will sent home with a script for toradol. Pt will be d/c home with a diagnosis of pleurisy and will F/ U next Wednesday with her battery tester field for 2D echo. - Departure Time of Disposition: 23:51 Departure Disposition: Home Clinical Impression: Pleuritis Condition: Stable Critical Care Time: No Referrals: FELIX VILLAGRAN [Primary Care Provider] - Instructions: Pleuritic Chest Pain (DC) Additional Instructions: Follow up with your battery tester field on Wednesday for 2D echo. Prescriptions: Ketorolac Tromethamine [Toradol] 10 mg PO QID PRN #20 tablet PRN Reason: Pain
[2017-12-16 23:06] LABS: BASOPHIL % 0.7 % (0.0-0.4); Basophil (Absolute #) 0.04 (0-0.4); Eosinophil % 1.9 % (0.00-5.0); Eosinophil (Absolute #) 0.11 (0-0.5); Granulocyte Absolute (ANC) 3.37 (1.4-6.9); Granulocytes % 57.4 % (36.0-66.0); Hematocrit 38.4 % (35-47); Hemoglobin 12.4 gm/dl (12.0-16.0); Lymphocyte (Absolute #) 1.89 (1.0-4.6); Lymphocytes % 32.3 % (24.0-44.0); Mean Cell Volume 89.7 fl (78-100); Mean Corpuscular Hgb Concent. 32.3 g/dl (32-36); Mean Platelet Volume 10.1 fl (6-9.5); Monocyte (Absolute #) 0.45 (0.0-1.3); Monocytes % 7.7 % (0.0-12.0); Platelet Count 229 K/mm3 (150-450); Red Blood Count 4.28 M/mm3 (4.1-5.4); Red Cell Distribution Width 14.9 % (11.5-14.0); White Blood Count 5.9 K/mm3 (4.0-10.5)
[2017-12-16] MEDS ORDERED: Zofran 4 MG/2 ML VIAL ONE (23:17)
[2017-12-16] MEDS ORDERED: TORAdol 30 mg Injection ONE (23:18)
[2017-12-16 23:30] LABS: ALBUMIN 4.4 g/dL (3.5-5.0); ANION GAP 14.7 MEQ/L (5-15); BILIRUBIN,TOTAL 0.4 mg/dL (0.2-1.3); Calcium 9.2 mg/dL (8.4-10.2); Creatinine 1 1.11 mg/dL (0.52-1.04); NT PRO BNP 28.4 pg/mL (0-450); Potassium 3.9 mmol/L (3.5-5.1); Total Protein 7.6 g/dL (6.3-8.2)
--- NOTE | 2017-12-17 09:30 | XRAY ---
Indication: Chest pain. Comparison: One day earlier.. PA/lateral chest again demonstrates normal heart and lungs with mediastinal/right hilar calcified nodes. Bony thorax intact. No new/acute findings.
== END 2017-12-16 23:59 | disposition home or self-care (01) ==
LOC: ED 22:33
DX: R09.1 Pleurisy (principal); I10 Essential (primary) hypertension; E03.9 Hypothyroidism, unspecified; M79.7 Fibromyalgia; K21.9 Gastro-esophageal reflux disease without esophagitis; F41.9 Anxiety disorder, unspecified; N80.9 Endometriosis, unspecified; Z79.899 Other long term (current) drug therapy
CPT/HCPCS: 36000; 36415; 71046; 80053; 82550; 83880; 84484; 85025; 96374; 96375; 99284; J1885; J2405

== ENCOUNTER 2018-12-31 13:23 | Emergency (ER) | payer OTHER ==
--- NOTE | 2018-12-31 13:50 | ERPHSYRPT ---
- History of Present Illness Source: patient, family Exam Limitations: no limitations Patient Subjective Stated Complaint: pt stated that she had surgery to LLE on 12/14/18, pt stated she is having 6/10 pain to LLE, mild swelling to LLE, pt stated pain increased yesterday at 5 pm, pt stated she took a norco at 0300 with no result Triage Nursing Assessment: pt came into ER via wheelchair, pt states 6/10 pain to LLE, LLE is warm with mild swelling, bruising is present to LLE, capillary refill is normal Method of Injury: other Occurred: yesterday Quality: throbbing Severity of Pain-Max: moderate Severity of Pain-Current: moderate Lower Extremities Pain: leg: left Modifying Factors: Improves With: movement Associated Symptoms: none, No dizzy, No fainted, No snapping sensation, No popping sensation Hx Tetanus, Diphtheria Vaccination/Date Given: Yes (2017) Hx Influenza Vaccination/Date Given: No Hx Pneumococcal Vaccination/Date Given: No Immunizations Up to Date: Yes <SUSANNA AMAYA - Last Filed: 12/31/18 14:37> <Ilan Dumont - Last Filed: 12/31/18 15:32> - History of Present Illness Time Seen by Provider: 12/31/18 13:49 Physician History: left lower leg tendon repair surgery done on December 14, 2018. Started having left calf pain yesterday. She called her surgeon who asked her to come to the ER to rule out DVT. (SUSANNA AMAYA) Allergies/Adverse Reactions: blueberry Allergy (Severe, Verified 12/31/18 13:47) Swelling hydrocodone bitartrate [From Vicodin] Allergy (Severe, Verified 12/31/18 13:47) Hives Sulfa (Sulfonamide Antibiotics) [Sulfa(Sulfonamide Antibiotics)] Allergy (Severe , Verified 12/31/18 13:47) Hives codeine [Codeine] Allergy (Intermediate, Verified 12/31/18 13:47) Hives adhesive Allergy (Verified 12/31/18 13:47) ibuprofen Allergy (Verified 12/31/18 13:47) [id number] Antimigraine Agents Allergy (Verified 12/31/18 13:47) ANY KIND OF MIGRAINE MED Allergy (Intermediate, Uncoded 11/22/16 12:33) Hives Home Medications: Ezetimibe 10 mg [Zetia 10 MG] 10 mg PO HS 02/11/14 [History] Levothyroxine Sodium [Synthroid] 250 mcg PO DAILY 02/11/14 [History] Omeprazole [Prilosec] 40 mg PO BID 02/11/14 [History] Topiramate 100 mg [Topamax 100 MG] 50 mg PO BID 02/11/14 [History] Lisinopril [Zestril] 2.5 mg PO DAILY 11/22/16 [History] Paroxetine HCl [Paxil] 10 mg PO DAILY 11/22/16 [History] Ergocalciferol (Vitamin D2) [Vitamin D] 50,000 unit PO WEEKLY 12/31/18 [History] Fenofibrate Nanocrystallized [Fenofibrate] 145 mg PO DAILY 12/31/18 [History] Ondansetron [Ondansetron Odt] 4 mg PO DAILY PRN 12/31/18 [History] Oxybutynin Chloride 5 mg PO BID 12/31/18 [History] Tizanidine HCl 4 mg PO DAILY 12/31/18 [History] - Review of Systems Constitutional: No Fever, No Chills Eyes: No Symptoms Ears, Nose, & Throat: No Symptoms Respiratory: No Cough, No Dyspnea Cardiac: No Chest Pain, No Edema, No Syncope Abdominal/Gastrointestinal: No Abdominal Pain, No Nausea, No Vomiting, No Diarrhea Genitourinary Symptoms: No Dysuria Musculoskeletal: Other (Left calf pain), No Back Pain, No Neck Pain Skin: No Rash Neurological: No Dizziness, No Focal Weakness, No Sensory Changes Psychological: No Symptoms Endocrine: No Symptoms All Other Systems: Reviewed and Negative <SUSANNA AMAYA - Last Filed: 12/31/18 14:37> - Past Medical History Pertinent Past Medical History: Yes Neurological History: Seizures ENT History: No Pertinent History Cardiac History: High Cholesterol Respiratory History: No Pertinent History Endocrine Medical History: Diabetes Type II, Hypothyroidism Musculoskeletal History: No Pertinent History GI Medical History: GERD, Pancreatitis, Polyps History: Other Psycho-Social History: Anxiety Female Reproductive Disorders: Endometriosis, Other Other Medical History: TOURETTE'S - Past Surgical History Past Surgical History: Yes Neuro Surgical History: No Pertinent History Cardiac: No Pertinent History Respiratory: No Pertinent History Gastrointestinal: No Pertinent History Genitourinary: No Pertinent History Musculoskeletal: No Pertinent History, Orthopedic Surgery Female Surgical History: Dilation & Curettage, Other Other Surgical History: D&C 05/22/2013 - Social History Smoking Status: Smoker, status unknown Exposure to second hand smoke: No Drug Use: none Patient Lives Alone: Yes Significant Family History: heart disease, cancer, diabetes - Female History Hx Last Menstrual Period: 12/12/2018 Hx Now: No <SUSANNA AMAYA - Last Filed: 12/31/18 14:37> - Physical Exam General Appearance: alert Eyes, Ears, Nose, Throat Exam: moist mucous membranes Neck Exam: non-tender, supple Cardiovascular/Respiratory Exam: chest non-tender, normal breath sounds, regular rate/rhythm, no respiratory distress Gastrointestinal/Abdominal Exam: non-tender, guarding Back Exam: normal inspection, No vertebral tenderness Hips Exam: bilateral: non-tender, normal inspection, normal range of motion, no evidence of injury Legs Exam: right leg: other (left cough: Painful, tender, same size as right calf), left leg: pain Ankle Exam: bilateral ankle: non-tender, normal inspection Foot Exam: bilateral foot: non-tender, normal inspection Neuro/Tendon Exam: normal sensation, normal motor functions, normal tendon functions Mental Status Exam: alert, oriented x 3, cooperative Skin Exam: normal color, warm, dry SpO2: 98 O2 Delivery: Room Air <SUSANNA AMYAA - Last Filed: 12/31/18 14:37> - Nursing Vital Signs Nursing Vital Signs: Initial Vital Signs Temperature 97.9 F 12/31/18 13:28 Pulse Rate 86 12/31/18 13:28 Respiratory Rate 18 12/31/18 13:28 Blood Pressure 144/83 12/31/18 13:28 O2 Sat by Pulse Oximetry 98 12/31/18 13:28 Pain Scale Pain Intensity [Left Lower 6 Calf] Pain Intensity 6 - Course Nursing assessment & vital signs reviewed: Yes <SUSANNA AMAYA - Last Filed: 12/31/18 14:37> Ordered Tests: Active Orders 24 hr Category Date Time Status VENOUS UNILAT/LIMITED EXTREMIT [US] Stat Exams 12/31/18 13:55 Taken CBC W DIFF Stat Lab 12/31/18 14:45 Completed CMP Stat Lab 12/31/18 14:45 Completed D-DIMER QUANTITATION Stat Lab 12/31/18 14:45 Completed Medication Summary Discontinued Medications Generic Name Dose Route Start Last Admin Trade Name Annie PRN Reason Stop Dose Admin Acetaminophen 1,000 mg 12/31/18 14:59 12/31/18 15:04 Tylenol Extra Strength 500 Mg PO 12/31/18 15:00 1,000 mg STAT STA Administration Acetaminophen Confirm 12/31/18 15:02 Tylenol Extra Strength 500 Mg Administered 12/31/18 15:03 Dose 1,000 mg .ROUTE .Actively Learn Lab/Rad Data: Laboratory Result Diagrams 12/31/18 14:45 12/31/18 14:45 Laboratory Results 12/31/18 12/31/18 12/31/18 Range/Units 14:45 14:45 14:45 WBC 4.9 (4.0-10.5) K/mm3 RBC 4.45 (4.1-5.4) M/mm3 Hgb 12.0 (12.0-16.0) gm/dl Hct 38.0 (35-47) % MCV 85.4 (78-100) fl MCH 27.0 (26-32) pg MCHC 31.6 L (32-36) g/dl RDW 14.6 H (11.5-14.0) % Plt Count 279 (150-450) K/mm3 MPV 9.7 H (6-9.5) fl Gran % 59.0 (36.0-66.0) % Eos # (Auto) 0.11 (0-0.5) Absolute Lymphs (auto) 1.43 (1.0-4.6) Absolute Monos (auto) 0.38 (0.0-1.3) Lymphocytes % 29.2 (24.0-44.0) % Monocytes % 7.8 (0.0-12.0) % Eosinophils % 2.2 (0.00-5.0) % Basophils % 1.8 (0.0-0.4) % Absolute Granulocytes 2.88 (1.4-6.9) Basophils # 0.09 (0-0.4) D-Dimer 761 H* (215-500) ng/mL Sodium 140 (137-145) mmol/L Potassium 4.1 (3.5-5.1) mmol/L Chloride 104 (98-107) mmol/L Carbon Dioxide 25 (22-30) mmol/L Anion Gap 14.3 (5-15) MEQ/L BUN 20 H (7-17) mg/dL Creatinine 1.09 H (0.52-1.04) mg/dL Estimated GFR 59.4 ML/MIN Glucose 89 (74-106) mg/dL Calcium 9.4 (8.4-10.2) mg/dL Total Bilirubin 0.50 (0.2-1.3) mg/dL AST 38 H (14-36) U/L ALT 28 (0-35) U/L Alkaline Phosphatase 66 (38-126) U/L Serum Total Protein 7.8 (6.3-8.2) g/dL Albumin 4.2 (3.5-5.0) g/dL <SUSANNA AMAYA - Last Filed: 12/31/18 14:37> - Progress Progress: unchanged (pt requesting for pain meds. Tylenol 1000mg po once), improved, re-examined (Patient was given Tylenol 1000 mg for pain. geologic technician ruled out DVT. D-dimer slightly elevated. Otherwise patient is doing better. Patient advised followup with [facility]/specialist on Wednesday or Wednesday. I will also prescribe her Keystone 5 which she has been taking Zocor. Says she only has one more pill left.) Counseled pt/family regarding: lab results, diagnosis, need for follow-up <Ilan Dumont - Last Filed: 12/31/18 15:32> - Progress Progress Note: 12/31/18 14:37 is per the cartographic technician there is no DVT.+ (SUSANNA AMAYA) <SUSANNA AMAYA - Last Filed: 12/31/18 14:37> - Departure Departure Disposition: Home Critical Care Time: No <Ilan Dumont - Last Filed: 12/31/18 15:32> - Departure Clinical Impression: Leg pain Condition: Stable Referrals: FELIX VILLAGRAN [Primary Care Provider] -
[2018-12-31 14:42] VITALS: O2SAT 98
[2018-12-31 14:44] LABS: BASOPHIL % 1.8 % (0.0-0.4); Basophil (Absolute #) 0.09 (0-0.4); Eosinophil % 2.2 % (0.00-5.0); Eosinophil (Absolute #) 0.11 (0-0.5); Granulocyte Absolute (ANC) 2.88 (1.4-6.9); Lymphocyte (Absolute #) 1.43 (1.0-4.6); Lymphocytes % 29.2 % (24.0-44.0); Mean Cell Volume 85.4 fl (78-100); Mean Corpuscular Hgb Concent. 31.6 g/dl (32-36); Mean Platelet Volume 9.7 fl (6-9.5); Monocyte (Absolute #) 0.38 (0.0-1.3); Monocytes % 7.8 % (0.0-12.0); Platelet Count 279 K/mm3 (150-450); Red Blood Count 4.45 M/mm3 (4.1-5.4); Red Cell Distribution Width 14.6 % (11.5-14.0); White Blood Count 4.9 K/mm3 (4.0-10.5)
[2018-12-31 14:54] LABS: ALBUMIN 4.2 g/dL (3.5-5.0); ANION GAP 14.3 MEQ/L (5-15); BILIRUBIN,TOTAL 0.5 mg/dL (0.2-1.3); Calcium 9.4 mg/dL (8.4-10.2); Creatinine 1 1.09 mg/dL (0.52-1.04); Potassium 4.1 mmol/L (3.5-5.1); Total Protein 7.8 g/dL (6.3-8.2)
[2018-12-31] MEDS ORDERED: TYLENOL EXTRA STRENGTH 500 MG PO STA (14:59)
[2018-12-31] MEDS ORDERED: TYLENOL EXTRA STRENGTH 500 MG ONE (15:02)
[2018-12-31 16:15] VITALS: BP 119/62; PULSE 76
--- NOTE | 2018-12-31 20:06 | XRAY ---
Indication: Left calf pain. Recent ligament repair December 14, 2018. 2-dimensional sonogram and color Doppler imaging of the major venous vessels of the left leg was performed. Comparison: None No thrombus seen in the examined deep venous vessels of the left leg including greater saphenous vein. Veins demonstrate normal compressibility. Venous waveforms are normal with and without augmentation. Impression: Left leg negative for DVT. Comment: Preliminary report was given.
== END 2018-12-31 16:15 | disposition home or self-care (01) ==
LOC: ED 13:23
DX: M79.662 Pain in left lower leg (principal); M79.89 Other specified soft tissue disorders; Z98.890 Other specified postprocedural states
CPT/HCPCS: 36415; 80053; 85025; 85379; 93971; 99284; A9270-GY

== ENCOUNTER 2019-12-27 02:49 | Emergency (ER) | payer OTHER ==
[2019-12-27 03:13] VITALS: O2SAT 99
[2019-12-27] MEDS ORDERED: MORPHINE SULFATE 4 MG INJ IV ONE (03:22)
[2019-12-27] MEDS ORDERED: Sodium Chloride 0.9% 1000 ML 1,000 ML IV STA (03:22)
[2019-12-27] MEDS ORDERED: Sodium Chloride 0.9% 1000 ML 1,000 ML ONE (03:33)
[2019-12-27] MEDS ORDERED: MORPHINE SULFATE 4 MG INJ ONE (03:33)
[2019-12-27 03:51] LABS: ALBUMIN 4.4 g/dL (3.5-5.0); ANION GAP 11.7 MEQ/L (5-15); BILIRUBIN,TOTAL 0.3 mg/dL (0.2-1.3); Calcium 9.4 mg/dL (8.4-10.2); Creatinine 1 1.27 mg/dL (0.52-1.04); EST GLOMERULAR FILTRATION RATE 49.5 ML/MIN; Total Protein 7.7 g/dL (6.3-8.2)
[2019-12-27 03:53] LABS: Amourphous Crystal FEW /HPF (NEGATIVE); Appearance SLIGHTLY CLOUDY (CLEAR); Bacteria RARE /HPF (NEGATIVE); Bilirubin NEGATIVE (NEGATIVE); Blood LARGE Ery/ul (0-5); Epithelial Cells RARE /HPF (FEW); Glucose NEGATIVE (NEGATIVE); Ketones NEGATIVE (NEGATIVE); Leukocyte Esterase MODERATE (NEGATIVE); Mucus SLIGHT /HPF (NEGATIVE); Nitrite NEGATIVE (NEGATIVE); Protein,Urine Dip NEGATIVE (Negative); Specific Gravity 1.025 (1.005-1.025); Urobilinogen NEGATIVE mg/dL (0-1); WBC 26-50 /HPF (0-5)
[2019-12-27 03:54] LABS: Absolute Neutrophil Ct (ANC) 3.41 (1.4-6.9); BASOPHIL % 0.6 % (0.0-0.4); Basophil (Absolute #) 0.04 (0-0.4); Eosinophil % 2.7 % (0.00-5.0); Eosinophil (Absolute #) 0.18 (0-0.5); Hematocrit 37.1 % (35-47); Hemoglobin 11.5 gm/dl (12.0-16.0); Lymphocyte (Absolute #) 2.59 (1.0-4.6); Lymphocytes % 38.3 % (24.0-44.0); Mean Cell Volume 87.5 fl (78-100); Mean Corpuscular Hemoglobin 27.1 pg (26-32); Mean Platelet Volume 10.6 fl (7.5-11.0); Monocyte (Absolute #) 0.54 (0.0-1.3); Neutrophil % 50.4 % (36.0-66.0); Platelet Count 277 K/mm3 (150-450); Red Blood Count 4.24 M/mm3 (4.1-5.4); Red Cell Distribution Width 14.6 % (11.5-14.0); White Blood Count 6.8 K/mm3 (4.0-10.5)
--- NOTE | 2019-12-27 04:50 | ERPHSYRPT ---
- History of Present Illness Time Seen by Provider: 12/27/19 03:00 Historian: patient Patient Subjective Stated Complaint: pt states she began having lower abd pain at approx 2100 last night and has been getting progressively worse. states radiates to back at times and this morning has been having bleeding. unsure of from urine or vaginal. hysterectomy 12/07/19 Triage Nursing Assessment: pt alert and oriented, answers questions approp. pt ambulatory with steady gait noted. respirations nonlabored with lungs cta. abd soft, tenderness noted to lt lower abd. bowel sounds x4. Physician History: Patient is a 39-year-old female presents to our ED with complaints of lower abdominal pain that started approximately 9 PM yesterday evening. Patient states the pain got progressively worse. Pain described as an ache that is mostly suprapubic left lower quadrant and radiates to her back. No trauma or fevers. No nausea or vomiting. No diarrhea. Patient observed blood tinge upon wiping. Patient unsure whether it was related to urine versus vaginal. Patient advises that she had a complete hysterectomy on 12/07/2019. Patient voices no other complaints or concerns at this time. Timing/Duration: today Activities at Onset: none Quality: aching Abdominal Pain Onset Location: LLQ, suprapubic Pain Radiation: back Severity of Pain-Max: moderate Severity of Pain-Current: mild Modifying Factors: Improves With: nothing Associated Symptoms: No back, No chest pain, No diaphoresis, No diarrhea, No nausea, No neck pain, No shortness of breath, No vomiting, No weakness Previous symptoms: no prior history Allergies/Adverse Reactions: blueberry Allergy (Severe, Verified 12/27/19 03:13) Swelling hydrocodone bitartrate [From Vicodin] Allergy (Severe, Verified 12/27/19 03:13) Hives Sulfa (Sulfonamide Antibiotics) [Sulfa(Sulfonamide Antibiotics)] Allergy (Severe, Verified 12/27/19 03:13) Hives codeine [Codeine] Allergy (Intermediate, Verified 12/27/19 03:13) Hives adhesive Allergy (Verified 12/27/19 03:13) ibuprofen Allergy (Verified 12/27/19 03:13) [id number] Antimigraine Agents Allergy (Verified 12/27/19 03:13) ANY KIND OF MIGRAINE MED Allergy (Intermediate, Uncoded 12/27/19 03:13) Hives Home Medications: Ezetimibe 10 mg [Zetia 10 MG] 10 mg PO HS 02/11/14 [History] Levothyroxine Sodium [Synthroid] 225 mcg PO DAILY 02/11/14 [History] Omeprazole [Prilosec] 40 mg PO DAILY 02/11/14 [History] Topiramate 100 mg [Topamax 100 MG] 50 mg PO BID 02/11/14 [History] PARoxetine HCl [Paxil] 10 mg PO DAILY 11/22/16 [History] lisinopriL [Zestril] 2.5 mg PO DAILY 11/22/16 [History] Ergocalciferol (Vitamin D2) [Vitamin D] 50,000 unit PO WEEKLY 12/31/18 [History] Fenofibrate Nanocrystallized [Fenofibrate] 145 mg PO DAILY 12/31/18 [History] Ondansetron [Ondansetron Odt] 4 mg PO DAILY PRN 12/31/18 [History] Oxybutynin Chloride 5 mg PO BID 12/31/18 [History] Tizanidine HCl 4 mg PO HS 12/31/18 [History] Estradiol 1 mg [Estrace 1 mg] 1 mg PO DAILY 12/27/19 [History] Hx Tetanus, Diphtheria Vaccination/Date Given: Yes (2017) Hx Influenza Vaccination/Date Given: No Hx Pneumococcal Vaccination/Date Given: No Immunizations Up to Date: Yes Travel Risk - International Travel Have you traveled outside of the country in past 3 weeks: No - Coronavirus Screening Are you exhibiting any of the following symptoms?: No Close contact with a COVID-19 positive Pt in past 14-21 Days: No - Review of Systems Constitutional: No Symptoms, No Fever, No Chills Eyes: No Symptoms Ears, Nose, & Throat: No Symptoms Respiratory: No Symptoms, No Cough, No Dyspnea Cardiac: No Symptoms, No Chest Pain, No Edema, No Syncope Abdominal/Gastrointestinal: No Symptoms, No Abdominal Pain, No Nausea, No Vomiting, No Diarrhea Genitourinary Symptoms: No Symptoms, No Dysuria Musculoskeletal: No Symptoms, No Back Pain, No Neck Pain Skin: No Symptoms, No Rash Neurological: No Symptoms, No Dizziness, No Focal Weakness, No Sensory Changes Psychological: No Symptoms Endocrine: No Symptoms Hematologic/Lymphatic: No Symptoms Immunological/Allergic: No Symptoms All Other Systems: Reviewed and Negative - Past Medical History Pertinent Past Medical History: Yes Neurological History: Migraines ENT History: No Pertinent History Cardiac History: High Cholesterol, Hypertension Respiratory History: Pneumonia Endocrine Medical History: Diabetes Type II, Hypothyroidism Musculoskeletal History: Other GI Medical History: GERD, Pancreatitis, Polyps History: Other Psycho-Social History: Anxiety Female Reproductive Disorders: Endometriosis, Other Other Medical History: SX RIGHT FOOT FOR LIGAMENT REPAIR 04/30. TOURETTE'S, ANXIETY - Past Surgical History Past Surgical History: Yes Neuro Surgical History: No Pertinent History Cardiac: No Pertinent History Respiratory: No Pertinent History Gastrointestinal: No Pertinent History Genitourinary: No Pertinent History Musculoskeletal: No Pertinent History, Orthopedic Surgery Female Surgical History: Hysterectomy, Dilation & Curettage Other Surgical History: D&C 05/22/2013. complete hyster 12/07/2019 - Social History Smoking Status: Former smoker Exposure to second hand smoke: No Drug Use: none Patient Lives Alone: No Significant Family History: heart disease, cancer, diabetes - Female History Hx Last Menstrual Period: hyster 12/07/19 Hx Now: No - Nursing Vital Signs Nursing Vital Signs: Initial Vital Signs Temperature 97.8 F 12/27/19 02:59 Pulse Rate 81 12/27/19 02:59 Respiratory Rate 18 12/27/19 02:59 Blood Pressure 131/82 12/27/19 02:59 O2 Sat by Pulse Oximetry 99 12/27/19 02:59 Pain Scale Pain Intensity 4 - Physical Exam General Appearance: no apparent distress, alert Eye Exam: PERRL/EOMI, eyes nml inspection Ears, Nose, Throat Exam: normal ENT inspection, pharynx normal, moist mucous membranes Neck Exam: normal inspection, non-tender, supple, full range of motion Respiratory Exam: normal breath sounds, lungs clear, No respiratory distress Cardiovascular Exam: regular rate/rhythm, normal heart sounds Gastrointestinal/Abdomen Exam: soft, No tenderness, No mass Back Exam: normal inspection, normal range of motion, No CVA tenderness, No vertebral tenderness Extremity Exam: normal inspection, normal range of motion, pelvis stable Neurologic Exam: alert, oriented x 3, cooperative, normal mood/affect, nml cerebellar function, sensation nml, No motor deficits Skin Exam: normal color, warm, dry Lymphatic Exam: No adenopathy SpO2 Interpretation: normal SpO2: 99 O2 Delivery: Room Air - Course Nursing assessment & vital signs reviewed: Yes - CT Exams Abdomen/Pelvis CT Interpretation: Tele-radiologist Report (Acute findings. No evidence of ureterolithiasis or obstructive uropathy.) Ordered Tests: Active Orders 24 hr Category Date Time Status IV Insertion STAT Care 12/27/19 03:22 Active ABDOMEN AND PELVIS W/0 CONTRAS [CT] Stat Exams 12/27/19 03:50 Taken CBC W DIFF Stat Lab 12/27/19 03:38 Completed CMP Stat Lab 12/27/19 03:38 Completed CULTURE,URINE Stat Lab 12/27/19 03:38 Received LIPASE Stat Lab 12/27/19 03:38 Completed UA W/RFX UR CULTURE Stat Lab 12/27/19 03:38 Completed Medication Summary Discontinued Medications Generic Name Dose Route Start Last Admin Trade Name Freq PRN Reason Stop Dose Admin Sodium Chloride 1,000 mls @ 999 mls/hr 12/27/19 03:22 12/27/19 03:35 Sodium Chloride 0.9% 1000 Ml IV 12/27/19 04:22 999 mls/hr .Q1H1M STA Administration Morphine Sulfate 4 mg 12/27/19 03:22 12/27/19 03:35 Morphine Sulfate 4 Mg Inj IV 12/27/19 03:23 4 mg STAT ONE Administration Nitrofurantoin Macrocrystals 100 mg 12/27/19 04:59 12/27/19 05:01 Macrobid 100mg Capsule PO 12/27/19 05:00 100 mg STAT ONE Administration Lab/Rad Data: Laboratory Result Diagrams 12/27/19 03:38 12/27/19 03:38 Laboratory Results 12/27/19 12/27/19 12/27/19 Range/Units 03:38 03:38 03:38 WBC 6.8 (4.0-10.5) K/mm3 RBC 4.24 (4.1-5.4) M/mm3 Hgb 11.5 L (12.0-16.0) gm/dl Hct 37.1 (35-47) % MCV 87.5 (78-100) fl MCH 27.1 (26-32) pg MCHC 31.0 L (32-36) g/dl RDW 14.6 H (11.5-14.0) % Plt Count 277 (150-450) K/mm3 MPV 10.6 (7.5-11.0) fl Gran % 50.4 (36.0-66.0) % Eos # (Auto) 0.18 (0-0.5) Absolute Lymphs (auto) 2.59 (1.0-4.6) Absolute Monos (auto) 0.54 (0.0-1.3) Lymphocytes % 38.3 (24.0-44.0) % Monocytes % 8.0 (0.0-12.0) % Eosinophils % 2.7 (0.00-5.0) % Basophils % 0.6 (0.0-0.4) % Absolute Granulocytes 3.41 (1.4-6.9) Basophils # 0.04 (0-0.4) Sodium 137 (137-145) mmol/L Potassium 4.0 (3.5-5.1) mmol/L Chloride 104 (98-107) mmol/L Carbon Dioxide 25 (22-30) mmol/L Anion Gap 11.7 (5-15) MEQ/L BUN 28 H (7-17) mg/dL Creatinine 1.27 H (0.52-1.04) mg/dL Estimated GFR 49.5 ML/MIN Glucose 106 (74-106) mg/dL Calcium 9.4 (8.4-10.2) mg/dL Total Bilirubin 0.30 (0.2-1.3) mg/dL AST 37 H (14-36) U/L ALT 26 (0-35) U/L Alkaline Phosphatase 70 (38-126) U/L Serum Total Protein 7.7 (6.3-8.2) g/dL Albumin 4.4 (3.5-5.0) g/dL Lipase 169 (23-300) U/L Urine Color YELLOW (YELLOW) Urine Appearance SLIGHTLY CLOUDY (CLEAR) Urine pH 5.0 (5-6) Ur Specific [place] 1.025 (1.005-1.025) Urine Protein NEGATIVE (Negative) Urine Ketones NEGATIVE (NEGATIVE) Urine Blood LARGE (0-5) Merlin/ul Urine Nitrite NEGATIVE (NEGATIVE) Urine Bilirubin NEGATIVE (NEGATIVE) Urine Urobilinogen NEGATIVE (0-1) mg/dL Ur Leukocyte Esterase MODERATE (NEGATIVE) Urine WBC (Auto) 26-50 (0-5) /HPF Urine RBC (Auto) 3-5 (0-2) /HPF U Epithel Cells (Auto) RARE (FEW) /HPF Urine Bacteria (Auto) RARE (NEGATIVE) /HPF Amorphous Crystals FEW (NEGATIVE) /HPF Urine Mucus (Auto) SLIGHT (NEGATIVE) /HPF Urine Culture Reflexed YES (NO) Urine Glucose NEGATIVE (NEGATIVE) mg/dL - Progress Progress: improved Progress Note: 12/27/19 05:13 Reassessed. Pain resolved. UA suggestive of urinary tract infection. We are unable to do a speculum exam as patient is postop and she is instructed not to have anything inserted vaginally for at least 6 weeks. Patient is still within the 6-week window. CT abdomen pelvis essentially nonremarkable. Labs are significant for elevated BUN and creatinine. 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 Patient also advised to recheck her kidney function as her creatinine is elevated. Counseled pt/family regarding: lab results, diagnosis, need for follow-up, rad results - Departure Departure Disposition: Home Clinical Impression: UTI (urinary tract infection), Elevated BUN, Elevated serum creatinine Condition: Stable Critical Care Time: No Referrals: LUCERO GARCIA [Primary Care Provider] - Additional Instructions: Discharge/Care Plan ALTAGRACIAWESLEY BURDEN was seen on 12/27/19 in the Emergency Room. The patient was counseled regarding Diagnosis,Lab results, Imaging studies, need for follow up and when to return to the Emergency Room. Prescriptions given: Discharge Note I have spoken with the patient and/or caregivers. I have explained the patient's condition, diagnosis and treatment plan based on the information available to me at this time. I have answered the patient's and/or caregiver's questions and addressed any concerns. The patient and/or caregivers have as good understanding of the patient's diagnosis, condition and treatment plan as can be expected at this point. The vital signs have been stable. The patient's condition is stable and appropriate for discharge from the emergency department. The patient will pursue further outpatient evaluation with the primary care physician or other designated or consulting physician as outlined in the discharge instructions. The patient and/or caregivers are agreeable to this plan of care and follow-up instructions have been explained in detail. The patient and/or caregivers have received these instruction. The patient/and or caregivers are aware that any significant change in condition or worsening of symptoms should prompt an immediate return to this or the closest emergency department or call 911. Prescriptions: Fluconazole 100 mg [Diflucan 100 MG] 100 mg PO DAILY 1 Days #1 tablet Nitrofurantoin Macro 100 mg [Macrobid 100MG Capsule] 100 mg PO BID 7 Days #14 capsule
[2019-12-27 04:56] VITALS: PULSE 69
[2019-12-27] MEDS ORDERED: Macrobid 100MG Capsule PO ONE (04:59)
[2019-12-27] MEDS ORDERED: Macrobid 100MG Capsule ONE (05:00)
[2019-12-27 05:17] VITALS: BP 117/83
--- NOTE | 2019-12-27 09:09 | XRAY ---
Indication: Left flank pain and dysuria. Hematuria. Multiple contiguous axial images obtained through the abdomen and pelvis without contrast as ordered. Comparison: September 18, 2017. Lung bases are clear. Heart is not enlarged. Partially visualized right infrahilar and subcarinal calcified nodes not previously imaged. No renal calculus or evidence for obstructive uropathy in either system. Noncontrasted stomach and bowel loops appear nonobstructed. Normal appendix. No free fluid/air. Stable splenic calcified granulomas. Remaining liver, gallbladder, pancreas, spleen, adrenal glands, kidneys, ureters, bladder, and aorta appear unremarkable for noncontrast exam. Osseous structures intact. Impression: Negative renal calculus or evidence for obstructive uropathy. Again evidence for old granulomatous disease. Remaining CT abdomen/pelvis without contrast exam is negative. Comment: Preliminary interpretation was made by [facility]. No critical discrepancy.
== END 2019-12-27 05:30 | disposition home or self-care (01) ==
LOC: ED 02:49
DX: N39.0 Urinary tract infection, site not specified (principal); R79.89 Other specified abnormal findings of blood chemistry
CPT/HCPCS: 36000; 36415; 74176; 80053; 81001; 83690; 85025; 87086; 96360; 96374; 99284; J2270; A9270-GY

== ENCOUNTER 2021-01-09 19:46 | Emergency (ER) | payer OTHER ==
--- NOTE | 2021-01-09 19:54 | ERPHSYRPT ---
- History of Present Illness Time Seen by Provider: 01/09/21 19:54 Source: patient Exam Limitations: no limitations Physician History: This is a morbidly obese 40-year-old white female who presents with significant muscle aches. She tested Covid positive and was seen at the infusion clinic and given an infusion as an outpatient. She came home and felt nauseated in the muscle aches and pains were worse. She was told to come to the emergency room if her muscle aches and pains were worse to be sure she did or did not have an allergic reaction. This certainly can be a side effect of the infusion medication. Patient has a history of hypertension, gastroesophageal reflux disease, hypothyroidism, migraine headaches, elevated cholesterol, diabetes and anxiety. Patient was nauseated at home and took a Zofran but it did not help. Timing/Duration: today Activities at Onset: none Severity of Dyspnea-Max: none Severity of Dyspnea-Current: none Possible Cause: no prior episodes Modifying Factors: Improves With: nothing Associated Symptoms: loss of appetite (And associated muscle aches and pains) Allergies/Adverse Reactions: blueberry Allergy (Severe, Verified 01/09/21 20:28) Swelling hydrocodone bitartrate [From Vicodin] Allergy (Severe, Verified 01/09/21 20:28) Hives Sulfa (Sulfonamide Antibiotics) [Sulfa(Sulfonamide Antibiotics)] Allergy (Severe, Verified 01/09/21 20:28) Hives codeine [Codeine] Allergy (Intermediate, Verified 01/09/21 20:28) Hives adhesive Allergy (Verified 01/09/21 20:28) ibuprofen Allergy (Verified 01/09/21 20:28) [id number] Antimigraine Agents Allergy (Verified 01/09/21 20:28) Iodinated Contrast Media Adverse Reaction (Verified 01/09/21 20:28) Irregular Heart Beat ANY KIND OF MIGRAINE MED Allergy (Intermediate, Uncoded 01/09/21 20:28) Hives Home Medications: Ezetimibe 10 mg [Zetia 10 MG] 10 mg PO HS 02/11/14 [History] Levothyroxine Sodium [Synthroid] 225 mcg PO DAILY 02/11/14 [History] Omeprazole [Prilosec] 40 mg PO DAILY 02/11/14 [History] Topiramate 100 mg [Topamax 100 MG] 50 mg PO BID 02/11/14 [History] PARoxetine HCl [Paxil] 10 mg PO DAILY 11/22/16 [History] lisinopriL [Zestril] 2.5 mg PO DAILY 11/22/16 [History] Ergocalciferol (Vitamin D2) [Vitamin D] 50,000 unit PO WEEKLY 12/31/18 [History] Fenofibrate Nanocrystallized [Fenofibrate] 145 mg PO DAILY 12/31/18 [History] Ondansetron [Ondansetron Odt] 4 mg PO DAILY PRN 12/31/18 [History] Oxybutynin Chloride 5 mg PO BID 12/31/18 [History] Tizanidine HCl 4 mg PO HS 12/31/18 [History] Estradiol 1 mg [Estrace 1 mg] 1 mg PO DAILY 12/27/19 [History] Hx Tetanus, Diphtheria Vaccination/Date Given: Yes (2017) Hx Influenza Vaccination/Date Given: No Hx Pneumococcal Vaccination/Date Given: No Travel Risk - International Travel Have you traveled outside of the country in past 3 weeks: No - Coronavirus Screening Are you exhibiting any of the following symptoms?: Yes Symptoms: Headaches/Body Aches/Fatigue - Review of Systems Constitutional: No Symptoms Eyes: No Symptoms Ears, Nose, & Throat: No Symptoms Respiratory: No Symptoms Cardiac: No Symptoms Abdominal/Gastrointestinal: Nausea, No Abdominal Pain, No Vomiting, No Diarrhea Genitourinary Symptoms: No Symptoms Musculoskeletal: Arthralgias, Myalgias Skin: No Symptoms Neurological: No Symptoms Psychological: No Symptoms Endocrine: No Symptoms Hematologic/Lymphatic: No Symptoms Immunological/Allergic: No Symptoms All Other Systems: Reviewed and Negative - Past Medical History Pertinent Past Medical History: Yes Neurological History: Migraines, Other ENT History: No Pertinent History Cardiac History: High Cholesterol, Hypertension Respiratory History: Pneumonia Endocrine Medical History: Diabetes Type II, Hypothyroidism Musculoskeletal History: Other GI Medical History: GERD, Pancreatitis, Polyps History: Other Psycho-Social History: Anxiety Female Reproductive Disorders: Endometriosis, Other Other Medical History: SX RIGHT FOOT FOR LIGAMENT REPAIR 04/30. TOURETTE'S, ANXIETY - Past Surgical History Past Surgical History: Yes Neuro Surgical History: No Pertinent History Cardiac: No Pertinent History Respiratory: No Pertinent History Gastrointestinal: No Pertinent History Genitourinary: No Pertinent History Musculoskeletal: No Pertinent History, Orthopedic Surgery Female Surgical History: Hysterectomy, Dilation & Curettage Other Surgical History: D&C 05/22/2013. complete hyster 12/07/2019 - Social History Smoking Status: Former smoker Exposure to second hand smoke: No Drug Use: none Patient Lives Alone: No Significant Family History: heart disease, cancer, diabetes - Nursing Vital Signs Nursing Vital Signs: Initial Vital Signs Temperature 99.2 F 01/09/21 20:00 Pulse Rate 87 01/09/21 20:00 Respiratory Rate 20 01/09/21 20:00 Blood Pressure 107/63 01/09/21 20:00 O2 Sat by Pulse Oximetry 99 01/09/21 20:00 Pain Scale Pain Intensity [Generalized] 8 Pain Intensity 8 - Physical Exam General Appearance: no apparent distress, alert, anxiety, obese Eye Exam: PERRL/EOMI, eyes nml inspection Ears, Nose, Throat Exam: hearing grossly normal, normal ENT inspection, normal pharynx Neck Exam: normal inspection, non-tender, supple, full range of motion Respiratory Exam: normal breath sounds, lungs clear, No chest tenderness, No respiratory distress Cardiovascular/Chest Exam: normal heart sounds, regular rate/rhythm, normal peripheral pulses Abdominal/Gastrointestinal Exam: soft, normal bowel sounds, No tenderness Rectal Exam: not done Extremity Exam: non-tender, normal range of motion, normal inspection Neurologic Exam: alert, oriented x 3, cooperative, 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 as tested, normal mood/affect, nml cerebellar function, nml station & gait, sensation nml Skin Exam: normal color, warm, dry Lymphatic Exam: No adenopathy SpO2 Interpretation: normal O2 Delivery: Room Air - Course Nursing assessment & vital signs reviewed: Yes Ordered Tests: Active Orders 24 hr Category Date Time Status IV Insertion STAT Care 01/09/21 20:04 Active CBC W DIFF Stat Lab 01/09/21 20:42 Completed CMP Stat Lab 01/09/21 20:42 Completed Medication Summary Generic Name Dose Route Start Last Admin Trade Name Freq PRN Reason Stop Dose Admin Sodium Chloride 1,000 mls @ 999 mls/hr 01/09/21 20:04 Sodium Chloride 0.9% 1000 Ml IV 01/09/21 21:04 .Q1H1M STA Discontinued Medications Generic Name Dose Route Start Last Admin Trade Name Freq PRN Reason Stop Dose Admin Hydromorphone HCl 0.5 mg 01/09/21 20:04 Hydromorphone 1 Mg/Ml Injection IV 01/09/21 20:05 STAT ONE Hydromorphone HCl Confirm 01/09/21 20:50 Hydromorphone 1 Mg/Ml Injection Administered 01/09/21 20:51 Dose 1 mg .ROUTE .STK-MED ONE Sodium Chloride Confirm 01/09/21 20:51 Sodium Chloride 0.9% 1000 Ml Administered 01/09/21 20:52 Dose 1,000 mls @ ud .ROUTE .STK-MED ONE Prochlorperazine Edisylate 5 mg 01/09/21 20:04 Compazine 10 Mg/2 Ml IV 01/09/21 20:05 STAT ONE Prochlorperazine Edisylate Confirm 01/09/21 20:51 Compazine 10 Mg/2 Ml Administered 01/09/21 20:52 Dose 10 mg .ROUTE .STK-MED ONE Lab/Rad Data: Laboratory Result Diagrams 01/09/21 20:42 01/09/21 20:42 Laboratory Results 01/09/21 01/09/21 Range/Units 20:42 20:42 WBC 4.3 (4.0-10.5) K/mm3 RBC 4.45 (4.1-5.4) M/mm3 Hgb 12.1 (12.0-16.0) gm/dl Hct 39.0 (35-47) % MCV 87.6 (78-100) fl MCH 27.2 (26-32) pg MCHC 31.0 L (32-36) g/dl RDW 14.2 H (11.5-14.0) % Plt Count 212 (150-450) K/mm3 MPV 9.8 (7.5-11.0) fl Gran % 70.2 H (36.0-66.0) % Eos # (Auto) 0.01 (0-0.5) Absolute Lymphs (auto) 0.76 L (1.0-4.6) Absolute Monos (auto) 0.49 (0.0-1.3) Lymphocytes % 17.9 L (24.0-44.0) % Monocytes % 11.5 (0.0-12.0) % Eosinophils % 0.2 (0.00-5.0) % Basophils % 0.2 (0.0-0.4) % Absolute Granulocytes 2.98 (1.4-6.9) Basophils # 0.01 (0-0.4) Sodium 139 (137-145) mmol/L Potassium 4.0 (3.5-5.1) mmol/L Chloride 106 (98-107) mmol/L Carbon Dioxide 22 (22-30) mmol/L Anion Gap 14.4 (5-15) MEQ/L BUN 17 (7-17) mg/dL Creatinine 1.22 H (0.52-1.04) mg/dL Estimated GFR 51.6 ML/MIN Glucose 94 (74-106) mg/dL Calcium 8.9 (8.4-10.2) mg/dL Total Bilirubin 0.30 (0.2-1.3) mg/dL AST 65 H (14-36) U/L ALT 56 H (0-35) U/L Alkaline Phosphatase 73 (38-126) U/L Serum Total Protein 7.2 (6.3-8.2) g/dL Albumin 4.1 (3.5-5.0) g/dL - Progress Progress: improved Air Movement: good Blood Culture(s) Obtained: No Counseled pt/family regarding: lab results, diagnosis, need for follow-up - Departure Departure Disposition: Home Clinical Impression: COVID-19 virus infection, Arthralgia, Viral syndrome, Nausea Condition: Stable Critical Care Time: No Referrals: LUCERO GARCIA NP [Primary Care Provider] - Additional Instructions: Drink plenty of fluids. Use Tylenol and ibuprofen for pain control. Follow-up with your primary care provider for further management. Prescriptions: Promethazine HCl 25 mg [Phenergan 25 mg] 25 mg PO Q8H PRN PRN #10 tablet PRN Reason: Nausea/Vomiting
[2021-01-09] MEDS ORDERED: Sodium Chloride 0.9% 1000 ML 1,000 ML IV STA (20:04)
[2021-01-09] MEDS ORDERED: Hydromorphone 1 mg/ml Injection IV ONE (20:04)
[2021-01-09] MEDS ORDERED: Compazine 10 MG/2 ML IV ONE (20:04)
[2021-01-09 20:45] LABS: Absolute Neutrophil Ct (ANC) 2.98 (1.4-6.9); BASOPHIL % 0.2 % (0.0-0.4); Basophil (Absolute #) 0.01 (0-0.4); Eosinophil % 0.2 % (0.00-5.0); Eosinophil (Absolute #) 0.01 (0-0.5); Hemoglobin 12.1 gm/dl (12.0-16.0); Lymphocyte (Absolute #) 0.76 (1.0-4.6); Lymphocytes % 17.9 % (24.0-44.0); Mean Cell Volume 87.6 fl (78-100); Mean Corpuscular Hemoglobin 27.2 pg (26-32); Mean Platelet Volume 9.8 fl (7.5-11.0); Monocyte (Absolute #) 0.49 (0.0-1.3); Monocytes % 11.5 % (0.0-12.0); Neutrophil % 70.2 % (36.0-66.0); Platelet Count 212 K/mm3 (150-450); Red Blood Count 4.45 M/mm3 (4.1-5.4); Red Cell Distribution Width 14.2 % (11.5-14.0); White Blood Count 4.3 K/mm3 (4.0-10.5)
[2021-01-09] MEDS ORDERED: Hydromorphone 1 mg/ml Injection ONE (20:50)
[2021-01-09] MEDS ORDERED: Compazine 10 MG/2 ML ONE (20:51)
[2021-01-09] MEDS ORDERED: Sodium Chloride 0.9% 1000 ML 1,000 ML ONE (20:51)
[2021-01-09 20:56] LABS: ALBUMIN 4.1 g/dL (3.5-5.0); ANION GAP 14.4 MEQ/L (5-15); BILIRUBIN,TOTAL 0.3 mg/dL (0.2-1.3); Calcium 8.9 mg/dL (8.4-10.2); Creatinine 1 1.22 mg/dL (0.52-1.04); EST GLOMERULAR FILTRATION RATE 51.6 ML/MIN; Total Protein 7.2 g/dL (6.3-8.2)
[2021-01-09 22:24] VITALS: BP 103/65; PULSE 98; O2SAT 97
== END 2021-01-09 22:25 | disposition home or self-care (01) ==
LOC: ED 19:46
DX: U07.1 COVID-19 (principal); B34.9 Viral infection, unspecified; R11.0 Nausea; I10 Essential (primary) hypertension; K21.9 Gastro-esophageal reflux disease without esophagitis; E03.9 Hypothyroidism, unspecified; E78.00 Pure hypercholesterolemia, unspecified; E11.9 Type 2 diabetes mellitus without complications; F41.9 Anxiety disorder, unspecified; Z79.899 Other long term (current) drug therapy
CPT/HCPCS: 36000; 36415; 80053; 85025; 96374; 96375; 99284; J1170

== ENCOUNTER 2022-12-05 11:39 | Emergency (ER) | payer OTHER ==
--- NOTE | 2022-12-05 11:41 | ERPHSYRPT ---
- History of Present Illness Time Seen by Provider: 12/05/22 11:41 Source: patient, EMS Exam Limitations: no limitations Physician History: 42-year-old female presents to the emergency room via ambulance after falling backwards out of her chair and hitting her head. She reports hitting her head directly on concrete at the back. No bleeding reported. She does have a slight headache and a little nausea which is her baseline due to her history of gastroparesis. She has no history of head injuries. Denies any numbness, tingling or focal weakness. She is able to recall all the details leading up to the fall and after. No LOC. No blood thinners. Occurred: just prior to arrival Severity: mild Head Injury Location: occipital Method of Injury: fell Loss of Consciousness: no loss of consciousness Associated Symptoms: nausea, headaches, No vomiting, No abdominal pain, No shortness of breath, No diaphoresis, No weakness Allergies/Adverse Reactions: blueberry Allergy (Severe, Verified 12/05/22 11:44) Swelling hydrocodone bitartrate [From Vicodin] Allergy (Severe, Verified 12/05/22 11:44) Hives Sulfa (Sulfonamide Antibiotics) [Sulfa(Sulfonamide Antibiotics)] Allergy (Severe, Verified 12/05/22 11:44) Hives codeine [Codeine] Allergy (Intermediate, Verified 12/05/22 11:44) Hives adhesive Allergy (Verified 12/05/22 11:44) ibuprofen Allergy (Verified 12/05/22 11:44) [id number] Antimigraine Agents Allergy (Verified 12/05/22 11:44) Iodinated Contrast Media Adverse Reaction (Verified 12/05/22 11:44) Irregular Heart Beat ANY KIND OF MIGRAINE MED Allergy (Intermediate, Uncoded 12/05/22 11:44) Hives Home Medications: Ezetimibe 10 mg [Zetia 10 MG] 10 mg PO HS 02/11/14 [History] Levothyroxine Sodium [Synthroid] 225 mcg PO DAILY 02/11/14 [History] Omeprazole [Prilosec] 40 mg PO DAILY 02/11/14 [History] Topiramate 100 mg [Topamax 100 MG] 50 mg PO BID 02/11/14 [History] PARoxetine HCl [Paxil] 10 mg PO DAILY 11/22/16 [History] lisinopriL [Zestril] 2.5 mg PO DAILY 11/22/16 [History] Ergocalciferol (Vitamin D2) [Vitamin D] 50,000 unit PO WEEKLY 12/31/18 [History] Fenofibrate Nanocrystallized [Fenofibrate] 145 mg PO DAILY 12/31/18 [History] Ondansetron [Ondansetron Odt] 4 mg PO DAILY PRN 12/31/18 [History] Oxybutynin Chloride 5 mg PO BID 12/31/18 [History] Tizanidine HCl 4 mg PO HS 12/31/18 [History] Estradiol 1 mg [Estrace 1 mg] 1 mg PO DAILY 12/27/19 [History] Hx Tetanus, Diphtheria Vaccination/Date Given: Yes (2017) Hx Influenza Vaccination/Date Given: No Hx Pneumococcal Vaccination/Date Given: No Travel Risk - Vaccine Status Have you recieved a Covid-19 vaccination: Yes 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 - Vaccination Dates Date of 2cond Vaccination (if applicable): NOT YET - Review of Systems Constitutional: No Symptoms Eyes: No Symptoms Ears, Nose, & Throat: No Symptoms Respiratory: No Symptoms Cardiac: No Symptoms Abdominal/Gastrointestinal: Nausea, No Vomiting Skin: No Symptoms Neurological: Headache, No Dizziness, No Focal Weakness, No Gait Changes, No Paralysis, No Parasthesia, No Seizure, No Sensory Changes, No Speech Changes Psychological: No Symptoms Endocrine: No Symptoms Hematologic/Lymphatic: No Symptoms Immunological/Allergic: No Symptoms All Other Systems: Reviewed and Negative - Past Medical History Pertinent Past Medical History: Yes Neurological History: Migraines, Other ENT History: No Pertinent History Cardiac History: High Cholesterol, Hypertension Respiratory History: Pneumonia Endocrine Medical History: Diabetes Type II, Hypothyroidism Musculoskeletal History: Other GI Medical History: GERD, Pancreatitis, Polyps History: Other Psycho-Social History: Anxiety Female Reproductive Disorders: Endometriosis, Other Other Medical History: SX RIGHT FOOT FOR LIGAMENT REPAIR 04/30. TOURETTE'S, ANXIETY - Past Surgical History Past Surgical History: Yes Neuro Surgical History: No Pertinent History Cardiac: No Pertinent History Respiratory: No Pertinent History Gastrointestinal: No Pertinent History Genitourinary: No Pertinent History Musculoskeletal: No Pertinent History, Orthopedic Surgery Female Surgical History: Hysterectomy, Dilation & Curettage Other Surgical History: D&C 05/22/2013. complete hyster 12/07/2019 - Social History Smoking Status: Former smoker Exposure to second hand smoke: No Drug Use: none Patient Lives Alone: No Significant Family History: heart disease, cancer, diabetes - Nursing Vital Signs Nursing Vital Signs: Initial Vital Signs Temperature 98.3 F 12/05/22 11:44 Pulse Rate 87 12/05/22 11:44 Respiratory Rate 18 12/05/22 11:44 Blood Pressure 119/79 12/05/22 11:44 O2 Sat by Pulse Oximetry 96 12/05/22 11:44 Pain Scale Pain Intensity 0 - Ponce Coma Score Best Eye Response (Juju): (4) open spontaneously Best Verbal Response (Juju): (5) oriented Best Motor Response (Ponce): (6) obeys commands Juju Total: 15 - Physical Exam General Appearance: no apparent distress, alert, No lethargy Eye Exam: bilateral eye: normal inspection, PERRL, EOMI ENT Exam: airway nml, No evidence of ENT injury Neck Exam: supple, trachea midline, full range of motion, normal alignment, normal inspection, No focal neuro deficit Cardiovascular/Respiratory Exam: no respiratory distress Mental Status Exam: alert, oriented x 3, 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 Exam: normal hearing, normal speech, PERRL, tongue midline, No facial asymmetry Motor/Sensory Exam: no motor deficit, no sensory deficit, no pronator drift, CN II-XII intact DTR Exam: knee (R): 2+, knee (L): 2+ Skin Exam: normal color, warm, dry, No abrasion, No laceration SpO2 Interpretation: normal O2 Delivery: Room Air - Course Nursing assessment & vital signs reviewed: Yes - CT Exams Head CT Interpretation: Negative, Discussed w/radiologist Ordered Tests: Active Orders 24 hr Category Date Time Status NPO (ED) STAT Care 12/05/22 11:48 Completed HEAD WITHOUT CONTRAST [CT] Stat Exams 12/05/22 11:49 Taken Medication Summary Discontinued Medications Generic Name Dose Route Start Last Admin Trade Name Freq PRN Reason Stop Dose Admin Acetaminophen 500 mg 12/05/22 11:49 12/05/22 11:57 Acetaminophen 500 Mg Tablet PO 12/05/22 11:50 500 mg STAT STA Administration Acetaminophen Confirm 12/05/22 11:56 Acetaminophen 500 Mg Tablet Administered 12/05/22 11:57 Dose 500 mg .ROUTE .STK-MED ONE Ondansetron HCl 4 mg 12/05/22 11:55 12/05/22 11:57 Zofran 4 Mg/Udtablet Orally Disintegrating PO 12/05/22 11:56 4 mg STAT ONE Administration Ondansetron HCl Confirm 12/05/22 11:57 Zofran 4 Mg/Udtablet Orally Disintegrating Administered 12/05/22 11:58 Dose 4 mg .ROUTE .STK-MED ONE - Progress Progress: unchanged Progress Note: Patient was given 500 mg of Tylenol and 4 mg of Zofran. Headache and nausea slightly improved. CT head showed no evidence of intracranial bleed. Patient continued to show no evidence of neurologic deficit. Low concern for concussion at this time, but if symptoms worsen follow-up with PCP. If patient develops worsening of headache, vomiting, speech changes or focal weakness I advised her to return to the emergency room for further evaluation. 12/05/22 12:55 Counseled pt/family regarding: diagnosis, need for follow-up, rad results Medical Desision Making - Diagnostic Testing Diagnostic test were ordered, analyzed, and reviewed by me: Yes Radiological Interpretation: Discussed w/ radiologist - Risk of complications Low Risk: Low risk of morbidity from additional dx testing or treatment - Departure Departure Disposition: Home Clinical Impression: Fall, Head injury without skull fracture Condition: Good Critical Care Time: No Referrals: LUCERO GARCIA NP [Primary Care Provider] - Follow up/PCP as directed Instructions: Head Injury in Adults (DC)
[2022-12-05] MEDS ORDERED: TYLENOL EXTRA STRENGTH 500 MG PO STA (11:49)
[2022-12-05 11:55] VITALS: RESP 18; TEMP 98.3; O2SAT 96
[2022-12-05] MEDS ORDERED: ZOFRAN ODT 4 MG PO ONE (11:55)
[2022-12-05] MEDS ORDERED: TYLENOL EXTRA STRENGTH 500 MG ONE (11:56)
[2022-12-05] MEDS ORDERED: ZOFRAN ODT 4 MG ONE (11:57)
[2022-12-05 12:44] VITALS: BP 107/65; PULSE 76
--- NOTE | 2022-12-05 12:51 | XRAY ---
CLINICAL HISTORY:fall, head trauma, no loc COMPARISON:None. TECHNIQUE:Non-enhanced CT scan of the brain was performed in the axial plane in bony and soft tissue windows with multiplanar reconstructions. FINDINGS: A tiny low-density focus is noted in left basal ganglia lentiform component, there is no surrounding edema, this could be a tiny old lacunar infarct, VR space, versus non-hemorrhagic contusion in setting of trauma, clinical correlation and follow up recommended for further evaluation. Otherwise Normal CT attenuation of both cerebral hemispheres with no areas of abnormal attenuation values. No suspicious space-occupying lesions. No intra or extra-axial collections of fresh blood density. Normal size and shape of the ventricles, basal cisterns, and cortical sulci. Basal ganglia, thalamus, and internal capsule appear normal. Brainstem and luisito appear normal. No shift of midline structures. Unremarkable posterior fossa. Largely preserved cranial calvarial bones. Visualized paranasal sinuses appear clear. IMPRESSION: 1. A tiny low-density focus is noted in left basal ganglia lentiform component, there is no surrounding edema, this could be a tiny old lacunar infarct, VR space, versus non-hemorrhagic contusion in setting of trauma, Clinical correlation and follow-up recommended for further evaluation. 2. No intracranial hematoma or mass effect was noted. ER was called at [phone] at 11:18 AM [employer]IST, and Porfirio was informed that the Stroke is negative. Electronically Signed by: Manisha Hughes MD. (12/05/2022 11:49:22 [employer] FERTILITY SPECIALIST)
== END 2022-12-05 12:47 | disposition home or self-care (01) ==
LOC: ED 11:39
DX: S09.90XA Unspecified injury of head, initial encounter (principal); W07.XXXA Fall from chair, initial encounter; R11.0 Nausea; E78.5 Hyperlipidemia, unspecified; I10 Essential (primary) hypertension; E11.9 Type 2 diabetes mellitus without complications; Z79.899 Other long term (current) drug therapy
CPT/HCPCS: 70450; 99283; Q0162; A9270-GY

== ENCOUNTER 2022-12-05 21:07 | Emergency (ER) | payer OTHER ==
[2022-12-05 21:27] VITALS: BP 159/86; PULSE 73; RESP 18; TEMP 97.2; O2SAT 95
[2022-12-05] MEDS ORDERED: TYLENOL EXTRA STRENGTH 500 MG PO STA (21:31)
[2022-12-05] MEDS ORDERED: ZOFRAN ODT 4 MG PO ONE (21:32)
--- NOTE | 2022-12-05 21:33 | ERPHSYRPT ---
- History of Present Illness Time Seen by Provider: 12/05/22 21:29 Source: patient Exam Limitations: no limitations Patient Subjective Stated Complaint: pt states that she fell backwards and hit her head. 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; pt is keeping eye closed; c/o nausea; denies vomiting; skin PDW; vitals wnl; no respiratory distress present Allergies/Adverse Reactions: blueberry Allergy (Severe, Verified 12/05/22 21:14) Swelling hydrocodone bitartrate [From Vicodin] Allergy (Severe, Verified 12/05/22 21:14) Hives Sulfa (Sulfonamide Antibiotics) [Sulfa(Sulfonamide Antibiotics)] Allergy (Chantell re, Verified 12/05/22 21:14) Hives codeine [Codeine] Allergy (Intermediate, Verified 12/05/22 21:14) Hives adhesive Allergy (Verified 12/05/22 21:14) ibuprofen Allergy (Verified 12/05/22 21:14) [id number] Antimigraine Agents Allergy (Verified 12/05/22 21:14) Iodinated Contrast Media Adverse Reaction (Verified 12/05/22 21:14) Irregular Heart Beat ANY KIND OF MIGRAINE MED Allergy (Intermediate, Uncoded 12/05/22 21:14) Hives Home Medications: Ezetimibe 10 mg [Zetia 10 MG] 10 mg PO HS 02/11/14 [History] Levothyroxine Sodium [Synthroid] 200 mcg PO DAILY 02/11/14 [History] Omeprazole [Prilosec] 40 mg PO DAILY 02/11/14 [History] Topiramate 100 mg [Topamax 100 MG] 50 mg PO BID 02/11/14 [History] lisinopriL [Zestril] 2.5 mg PO DAILY 11/22/16 [History] Ergocalciferol (Vitamin D2) [Vitamin D] 50,000 unit PO WEEKLY 12/31/18 [History] Fenofibrate Nanocrystallized [Fenofibrate] 145 mg PO DAILY 12/31/18 [History] Ondansetron [Ondansetron Odt] 4 mg PO DAILY PRN 12/31/18 [History] Oxybutynin Chloride 5 mg PO BID 12/31/18 [History] Tizanidine HCl 4 mg PO HS 12/31/18 [History] Estradiol 1 mg [Estrace 1 mg] 1 mg PO DAILY 12/27/19 [History] Hx Tetanus, Diphtheria Vaccination/Date Given: Yes (2017) Hx Influenza Vaccination/Date Given: No Hx Pneumococcal Vaccination/Date Given: No Travel Risk - International Travel Have you traveled outside of the country in past 3 weeks: No - Coronavirus Screening Are you exhibiting any of the following symptoms?: No Close contact with a COVID-19 positive Pt in past 14-21 Days: No - Vaccine Status Have you recieved a Covid-19 vaccination: 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 TOURETTE'S, ANXIETY - Past Surgical History Past Surgical History: Yes Neuro Surgical History: No Pertinent History Cardiac: No Pertinent History Respiratory: No Pertinent History Gastrointestinal: No Pertinent History Genitourinary: No Pertinent History Musculoskeletal: No Pertinent History, Orthopedic Surgery Female Surgical History: Hysterectomy, Dilation & Curettage Other Surgical History: D&C 05/22/2013. complete hyster 12/07/2019 - Social History Smoking Status: Former smoker Exposure to second hand smoke: No Drug Use: none Patient Lives Alone: No Significant Family History: heart disease, cancer, diabetes - Female History Hx Now: No - Nursing Vital Signs Nursing Vital Signs: Initial Vital Signs Temperature 97.2 F 12/05/22 21:09 Pulse Rate 73 12/05/22 21:09 Respiratory Rate 18 12/05/22 21:09 Blood Pressure 159/86 12/05/22 21:09 O2 Sat by Pulse Oximetry 95 12/05/22 21:09 Pain Scale Pain Intensity 6 - Physical Exam SpO2: 95 - Departure Departure Disposition: Home Clinical Impression: Concussion Condition: Good Critical Care Time: No Referrals: LUCERO GARCIA NP [Primary Care Provider] - Follow up/PCP as directed Instructions: Concussion, Adult (DC) Prescriptions: ondansetron HCL [Ondansetron HCl] 4 mg PO Q8H PRN #21 tablet PRN Reason: Nausea
[2022-12-05] MEDS ORDERED: TYLENOL EXTRA STRENGTH 500 MG ONE (21:36)
[2022-12-05] MEDS ORDERED: ZOFRAN ODT 4 MG ONE (21:36)
== END 2022-12-05 22:00 | disposition home or self-care (01) ==
LOC: ED 21:07
DX: S06.0X0A Concussion without loss of consciousness, initial encounter (principal); W19.XXXA Unspecified fall, initial encounter; E78.5 Hyperlipidemia, unspecified; I10 Essential (primary) hypertension; E11.9 Type 2 diabetes mellitus without complications; Z79.899 Other long term (current) drug therapy
CPT/HCPCS: 99282; Q0162; A9270-GY

== ENCOUNTER 2024-04-20 16:09 | Day surgery (SDC) | payer OTHER ==
[2024-04-20] MEDS ORDERED: methylPREDNISolone acetate IM ONE (16:10)
[2024-04-20] MEDS ORDERED: LIDOCAINE HCL 1% 50 MG/5 ML VL IJ ONE (16:10)
[2024-04-20] MEDS ORDERED: BUPIVACAINE 0.5% VIAL IJ ONE (16:10)
--- NOTE | 2024-04-21 08:40 | XRAY ---
Indication: Bilateral greater trochanter bursa injection. Intraoperative fluoroscopy provided for 31 seconds. 2 digital spot image submitted for interpretation demonstrates needle tips projecting lateral to left and right greater trochanters. Small amount of contrast injected for needle placement. Correlate with intraoperative findings/report.
--- NOTE | 2024-04-21 09:42 | XRAY ---
31 seconds of fluoroscopy were used in surgery for a bilateral greater trochanteric bursa injection.
== END 2024-04-20 18:20 | disposition home or self-care (01) ==
LOC: SDC-PAIN 16:09
PROVIDERS: ATTEND Psychiatry & Neurology Pain Medicine
DX: M70.62 Trochanteric bursitis, left hip (principal); M70.61 Trochanteric bursitis, right hip; E11.9 Type 2 diabetes mellitus without complications
CPT/HCPCS: 20610; 73521; 77002; 82947; J1010; Q9966